=== PATIENT | female | born 1955 | race Two or more races ===

== ENCOUNTER 2016-12-15 11:22 | Emergency (ER) | payer OTHER ==
[~2016-12-15] VITALS: Ht 157.5 cm; Wt 73.5 kg
[2016-12-15 13:16] LABS: Basophils # (auto) 0 uL; Basophils % (auto) 0.5 % (0.0-2.0); DEFINITIVE VIEW TRANSMISSION; Eosinophils # (auto) 0 uL; Eosinophils % (auto) 0.6 % (0.0-7.0); Hematocrit 40.4 % (36.0-46.0); Hemoglobin 12.4 g/dL (12.2-16.2); Lymphocytes # (auto) 2.2 uL; Lymphocytes % (auto) 29.6 % (10.0-50.0); Mean Corpuscular Hemoglobin 26.6 pg (28.0-32.0); Mean Corpuscular Hgb Conc. 30.8 g/dL (32.0-36.0); Mean Corpuscular Volume 86.3 fL (80.0-100.0); Mean Platelet Volume 9.4 fL (7.4-10.4); Monocytes # (auto) 0.4 uL; Monocytes % (auto) 4.9 % (0.0-12.0); Neutrophils # (auto) 4.9 uL; Neutrophils % (auto) 64.4 % (37.0-80.0); Platelet Count (auto) 293 10^3/uL (140-450); Red Cell Distribution Width 13.3 % (11.6-16.0); White Blood Cell 7.6 10^3/uL (4.4-10.8)
[2016-12-15 13:30] LABS: Urine Bilirubin Negative (Negative); Urine Blood Negative /uL (Negative); Urine Color Yellow (Yellow); Urine Glucose Normal (Normal); Urine Ketone Negative (Negative); Urine Nitrite Negative (Negative); Urine RBC 1 /hpf (0 - 4); Urine Squamous Epithelial Cell FEW /hpf (<5); Urine Urobilinogen Normal (Negative); Urine pH 6.5 (5.0-8.0)
[2016-12-15 13:36] LABS: Calcium 8.9 mg/dL (8.5-10.1)
[2016-12-15 13:38] LABS: BUN/Creatinine Ratio 13.3
[2016-12-15 14:46] LABS: Bilirubin, Total 0.5 mg/dL (0.2-1.0); Total Protein 7.6 g/dL (6.4-8.2)
[2016-12-15 19:29] VITALS: BP 152/77
[2016-12-15] MEDS ORDERED: SODIUM CHLORIDE 0.9% 1,000 ML IVB ONE (20:04)
[2016-12-15 21:07] LABS: INR 1.09 (0.9-1.15); Partial Thromboplastin Time 27.8 sec (22.64-33.71); Prothrombin Time 11.2 sec (9.37-12.3)
== END 2016-12-15 22:18 | disposition home or self-care (01) ==
LOC: ER 11:23
DX: K57.30 Diverticulosis of large intestine without perforation or abscess without bleeding (principal); E78.5 Hyperlipidemia, unspecified; I10 Essential (primary) hypertension; Z88.1 Allergy status to other antibiotic agents
CPT/HCPCS: 36415; 71010; 74176; 80053; 81001; 83735; 85025; 85610; 85730; 93005; 94761; 96360; 96361; 99285; J7030

== ENCOUNTER 2019-03-01 09:56 | Emergency (ER) | payer OTHER ==
[~2019-03-01] VITALS: Ht 157.5 cm; Wt 73.5 kg
[2019-03-01 10:16] VITALS: BP 138/91
== END 2019-03-01 11:53 | disposition home or self-care (01) ==
LOC: ER 09:59
DX: S63.634A Sprain of interphalangeal joint of right ring finger, initial encounter (principal); E78.5 Hyperlipidemia, unspecified; I10 Essential (primary) hypertension; Z88.2 Allergy status to sulfonamides; X50.1XXA Overexertion from prolonged static or awkward postures, initial encounter; Y93.89 Activity, other specified; Y92.89 Other specified places as the place of occurrence of the external cause; Y99.8 Other external cause status
CPT/HCPCS: 29130; 73130

== ENCOUNTER → 2021-02-24 | Outpatient (CLI) | payer OTHER ==
[2021-02-24 08:32] LABS: Basophils # (auto) 0.1 10 ^3/uL (0-0.2); Basophils % (auto) 0.9 % (0.0-2.0); Eosinophils # (auto) 0.4 10 ^3/uL (0-0.8); Eosinophils % (auto) 5.8 % (0.0-7.0); Hematocrit 39.8 % (36.0-46.0); Hemoglobin 13.3 g/dL (12.2-16.2); Lymphocytes # (auto) 2.7 10 ^3/uL (0.4-5.4); Lymphocytes % (auto) 39.8 % (10.0-50.0); Mean Corpuscular Hemoglobin 28.4 pg (28.0-32.0); Mean Corpuscular Hgb Conc. 33.4 g/dL (32.0-36.0); Mean Corpuscular Volume 84.9 fL (80.0-100.0); Monocytes # (auto) 0.4 10 ^3/uL (0-1.3); Monocytes % (auto) 5.8 % (0.0-12.0); Neutrophils # (auto) 3.2 10 ^3/uL (1.6-8.6); Neutrophils % (auto) 47.7 % (37.0-80.0); Nucleated Red Blood Cells % 0.1 %; Platelet Count (auto) 281 10^3/uL (140-450); Red Blood Cells 4.69 10^6/uL (4.0-5.20); Red Cell Distribution Width 13.8 % (11.8-14.3); White Blood Cell 6.7 10^3/uL (4.4-10.8)
[2021-02-24 08:35] LABS: Urine Bacteria NONE SEEN /hpf (None Seen); Urine Blood Negative /uL (Negative); Urine Mucus FEW (None Seen); Urine Specific Gravity 1.018 (1.001-1.035); Urine WBC 1 /hpf (0 - 5)
[2021-02-24 09:08] LABS: Albumin 3.9 g/dL (3.4-5.0); Calcium 9.1 mg/dL (8.5-10.1); Potassium 3.6 mmol/L (3.5-5.1)
[2021-02-24 09:13] LABS: BUN/Creatinine Ratio 20.3; Bilirubin, Total 0.6 mg/dL (0.2-1.0); Total Protein 7.4 g/dL (6.4-8.2)
== END | disposition home or self-care (01) ==
LOC: LAB 07:56
PROVIDERS: ATTEND Student in an Organized Health Care Education/Training Program
DX: I10 Essential (primary) hypertension (principal); R73.9 Hyperglycemia, unspecified; M06.9 Rheumatoid arthritis, unspecified
CPT/HCPCS: 36415; 80053; 80061; 81001; 83036; 84443; 85025; 86431

== ENCOUNTER 2021-06-12 12:11 | Day surgery (SDC) | payer OTHER ==
[2021-06-09 09:49] LABS: Basophils # (auto) 0 10 ^3/uL (0-0.2); Basophils % (auto) 0.7 % (0.0-2.0); Eosinophils # (auto) 0.1 10 ^3/uL (0-0.8); Eosinophils % (auto) 1.4 % (0.0-7.0); Hematocrit 37.7 % (36.0-46.0); Hemoglobin 12.6 g/dL (12.2-16.2); Lymphocytes # (auto) 2.3 10 ^3/uL (0.4-5.4); Mean Corpuscular Hgb Conc. 33.5 g/dL (32.0-36.0); Mean Corpuscular Volume 83.7 fL (80.0-100.0); Monocytes # (auto) 0.5 10 ^3/uL (0-1.3); Neutrophils % (auto) 50.9 % (37.0-80.0); Red Blood Cells 4.51 10^6/uL (4.0-5.20); Red Cell Distribution Width 14.1 % (11.8-14.3)
[2021-06-09 09:55] LABS: Urine Bacteria NONE SEEN /hpf (None Seen); Urine Blood Negative /uL (Negative); Urine Hyaline Cast FEW /lpf (0 - 2); Urine Specific Gravity 1.014 (1.001-1.035); Urine WBC 5 /hpf (0 - 5)
[2021-06-09 10:15] LABS: Albumin 3.6 g/dL (3.4-5.0); Calcium 8.4 mg/dL (8.5-10.1)
[2021-06-09 10:18] LABS: BUN/Creatinine Ratio 22.5; Bilirubin, Total 0.4 mg/dL (0.2-1.0); Total Protein 7.1 g/dL (6.4-8.2)
[~2021-06-12] VITALS: Ht 149.9 cm; Wt 73.5 kg
[~2021-06-12 12:11] MED LIST: ATO40T PO; FLUT1SPR5; HYDR25TA4 PO; LORA-622 PO; OMEP20TA PO
[2021-06-12] MEDS: fentaNYL CITRATE 100 MCG/2 ML VL ONE ×3 (14:14→14:23)
[2021-06-12] MEDS: MIDAZOLAM HCL 5 MG/ML-1ML VIAL ONE ×3 (14:14→14:23)
[2021-06-12] MEDS: diphenhdrAMINE HCL 50 MG/1 ML VL ONE ×2 (14:14→14:17)
[2021-06-12 15:05] VITALS: BP 115/61
== END 2021-06-12 15:30 | disposition home or self-care (01) ==
LOC: GI 12:11
PROVIDERS: ATTEND Internal Medicine Gastroenterology
DX: Z12.11 Encounter for screening for malignant neoplasm of colon (principal); K63.89 Other specified diseases of intestine; K64.8 Other hemorrhoids; I10 Essential (primary) hypertension; E78.5 Hyperlipidemia, unspecified; M62.89 Other specified disorders of muscle; Z98.890 Other specified postprocedural states; Z79.899 Other long term (current) drug therapy; Z88.1 Allergy status to other antibiotic agents; Z68.32 Body mass index [BMI] 32.0-32.9, adult; Z20.822 Contact with and (suspected) exposure to COVID-19
CPT/HCPCS: 36415; 45380; 80053; 81001; 85025; 88305; J1200; J2250; J3010; J7030; U0003; 99152

== ENCOUNTER → 2022-04-14 | Outpatient (CLI) | payer OTHER ==
[2022-04-14 08:13] LABS: Basophils # (auto) 0 10 ^3/uL (0-0.2); Basophils % (auto) 0.8 % (0.0-2.0); Eosinophils # (auto) 0.1 10 ^3/uL (0-0.8); Hematocrit 36.6 % (36.0-46.0); Hemoglobin 12.5 g/dL (12.2-16.2); Lymphocytes # (auto) 2.4 10 ^3/uL (0.4-5.4); Lymphocytes % (auto) 39.5 % (10.0-50.0); Mean Corpuscular Hgb Conc. 34.3 g/dL (32.0-36.0); Mean Corpuscular Volume 84.5 fL (80.0-100.0); Monocytes # (auto) 0.4 10 ^3/uL (0-1.3); Monocytes % (auto) 7.4 % (0.0-12.0); Neutrophils # (auto) 3.1 10 ^3/uL (1.6-8.6); Neutrophils % (auto) 50.3 % (37.0-80.0); Nucleated Red Blood Cells % 0.1 %; Red Blood Cells 4.33 10^6/uL (4.0-5.20); Red Cell Distribution Width 13.8 % (11.8-14.3); White Blood Cell 6.1 10^3/uL (4.4-10.8)
[2022-04-14 08:14] LABS: Urine Bacteria FEW /hpf (None Seen); Urine Blood Negative /uL (Negative); Urine WBC 16 /hpf (0 - 5)
[2022-04-14 08:37] LABS: Potassium 3.8 mmol/L (3.5-5.1)
[2022-04-14 08:45] LABS: Albumin 3.5 g/dL (3.4-5.0); BUN/Creatinine Ratio 22.1; Bilirubin, Total 0.6 mg/dL (0.2-1.0); Calcium 8.6 mg/dL (8.5-10.1); Total Protein 7.1 g/dL (6.4-8.2)
== END | disposition home or self-care (01) ==
LOC: LAB 07:48
PROVIDERS: ATTEND Student in an Organized Health Care Education/Training Program
DX: A74.9 Chlamydial infection, unspecified (principal); I10 Essential (primary) hypertension
CPT/HCPCS: 36415; 80053; 80061; 81001; 83036; 84443; 85025

== ENCOUNTER 2022-04-22 09:51 | Emergency (ER) | payer OTHER ==
[~2022-04-22] VITALS: Ht 157.5 cm; Wt 73.9 kg
[2022-04-22] MEDS ORDERED: SODIUM CHLORIDE 0.9% 1,000 ML IV ONE (10:00)
[2022-04-22] MEDS ORDERED: MECL25CH38 PO (10:16)
[2022-04-22] MEDS ORDERED: cloNIDine HCL 0.1 MG TAB PO ONE (10:30)
[2022-04-22 10:41] LABS: Basophils # (auto) 0.1 10 ^3/uL (0-0.2); Basophils % (auto) 1.6 % (0.0-2.0); Eosinophils # (auto) 0 10 ^3/uL (0-0.8); Eosinophils % (auto) 0.1 % (0.0-7.0); Hematocrit 38.8 % (36.0-46.0); Hemoglobin 12.9 g/dL (12.2-16.2); Lymphocytes # (auto) 1.3 10 ^3/uL (0.4-5.4); Lymphocytes % (auto) 17.4 % (10.0-50.0); Mean Corpuscular Hemoglobin 28.7 pg (28.0-32.0); Mean Corpuscular Hgb Conc. 33.4 g/dL (32.0-36.0); Mean Corpuscular Volume 85.9 fL (80.0-100.0); Monocytes # (auto) 0.3 10 ^3/uL (0-1.3); Monocytes % (auto) 3.5 % (0.0-12.0); Neutrophils # (auto) 5.7 10 ^3/uL (1.6-8.6); Neutrophils % (auto) 77.4 % (37.0-80.0); Nucleated Red Blood Cells % 0.1 %; Red Blood Cells 4.51 10^6/uL (4.0-5.20); Red Cell Distribution Width 13.9 % (11.8-14.3); White Blood Cell 7.3 10^3/uL (4.4-10.8)
[2022-04-22 10:58] LABS: BUN/Creatinine Ratio 20.3; Calcium 8.8 mg/dL (8.5-10.1); Potassium 3.9 mmol/L (3.5-5.1)
[2022-04-22 11:01] LABS: Bilirubin, Total 0.5 mg/dL (0.2-1.0); Total Protein 7.5 g/dL (6.4-8.2)
[2022-04-22 11:44] LABS: Urine Bacteria NONE SEEN /hpf (None Seen); Urine Blood Negative /uL (Negative); Urine Mucus FEW (None Seen); Urine Specific Gravity 1.023 (1.001-1.035); Urine WBC 1 /hpf (0 - 5)
[2022-04-22 11:45] VITALS: BP 146/79
[2022-04-22] MEDS ORDERED: MECLIZINE HCL 25 MG TAB PO ONE (12:30)
== END 2022-04-22 13:08 | disposition home or self-care (01) ==
LOC: ER 09:51
DX: R42 Dizziness and giddiness (principal); I10 Essential (primary) hypertension; E78.5 Hyperlipidemia, unspecified; Z88.2 Allergy status to sulfonamides
CPT/HCPCS: 36415; 70450; 71045; 80053; 81001; 84484; 85025; 93005; 96360; 99285; J7030; J8597

== ENCOUNTER → 2022-07-14 | Outpatient (CLI) | payer OTHER ==
[~2022-07-14] MED LIST changes: +MECL25CH38 PO
== END | disposition home or self-care (01) ==
LOC: XYW 10:10
PROVIDERS: ATTEND Student in an Organized Health Care Education/Training Program
DX: M47.022 Vertebral artery compression syndromes, cervical region (principal); I65.23 Occlusion and stenosis of bilateral carotid arteries; R42 Dizziness and giddiness
CPT/HCPCS: 93886

== ENCOUNTER 2022-11-07 08:44 | Emergency (ER) | payer OTHER ==
[~2022-11-07] VITALS: Ht 157.5 cm; Wt 73.4 kg
[2022-11-07 09:15] VITALS: BP 153/94
[2022-11-07] MEDS ORDERED: POLYSOL15 OP (09:47)
[2022-11-07] MEDS ORDERED: LORA-664 PO (09:47)
[2022-11-07] MEDS ORDERED: BENZ100C19 PO (09:48)
== END 2022-11-07 10:10 | disposition home or self-care (01) ==
LOC: ER 08:44
DX: J06.9 Acute upper respiratory infection, unspecified (principal); B97.89 Other viral agents as the cause of diseases classified elsewhere; H10.9 Unspecified conjunctivitis; I10 Essential (primary) hypertension; E78.5 Hyperlipidemia, unspecified; Z79.899 Other long term (current) drug therapy; Z88.2 Allergy status to sulfonamides

== ENCOUNTER → 2022-12-21 | Outpatient (CLI) | payer OTHER ==
[~2022-12-21] MED LIST changes: +BENZ100C19 PO; +HYDR-4188 OR; +LORA-664 PO; +LOSA-69 PO; +POLYSOL15 OP
[2022-12-21 08:46] LABS: Basophils # (auto) 0 10 ^3/uL (0-0.2); Basophils % (auto) 0.7 % (0.0-2.0); Eosinophils # (auto) 0.1 10 ^3/uL (0-0.8); Eosinophils % (auto) 1.5 % (0.0-7.0); Hematocrit 40.6 % (36.0-46.0); Hemoglobin 13.1 g/dL (12.2-16.2); Lymphocytes # (auto) 2.1 10 ^3/uL (0.4-5.4); Lymphocytes % (auto) 31.8 % (10.0-50.0); Mean Corpuscular Hemoglobin 27.9 pg (28.0-32.0); Mean Corpuscular Hgb Conc. 32.3 g/dL (32.0-36.0); Mean Corpuscular Volume 86.2 fL (80.0-100.0); Monocytes # (auto) 0.4 10 ^3/uL (0-1.3); Monocytes % (auto) 6.5 % (0.0-12.0); Neutrophils # (auto) 3.9 10 ^3/uL (1.6-8.6); Neutrophils % (auto) 59.5 % (37.0-80.0); Nucleated Red Blood Cells % 0.1 %; Red Cell Distribution Width 14.1 % (11.8-14.3); White Blood Cell 6.6 10^3/uL (4.4-10.8)
[2022-12-21 08:55] LABS: Urine Bacteria NONE SEEN /hpf (None Seen); Urine Blood Negative /uL (Negative); Urine Specific Gravity 1.005 (1.001-1.035); Urine WBC <1 /hpf (0 - 5)
[2022-12-21 09:24] LABS: Albumin 3.8 g/dL (3.4-5.0); Calcium 8.9 mg/dL (8.5-10.1); Potassium 3.9 mmol/L (3.5-5.1)
[2022-12-21 09:27] LABS: BUN/Creatinine Ratio 18.2; Bilirubin, Total 0.5 mg/dL (0.2-1.0); Total Protein 7.3 g/dL (6.4-8.2)
== END | disposition home or self-care (01) ==
LOC: LAB 08:30
PROVIDERS: ATTEND Student in an Organized Health Care Education/Training Program
DX: I10 Essential (primary) hypertension (principal); R73.9 Hyperglycemia, unspecified
CPT/HCPCS: 36415; 80053; 80061; 81001; 83036; 84443; 85025

== ENCOUNTER → 2022-12-22 | Day surgery (SDC) | payer OTHER ==
[2022-12-21 08:45] LABS: Basophils # (auto) 0 10 ^3/uL (0-0.2); Basophils % (auto) 0.5 % (0.0-2.0); Eosinophils # (auto) 0.1 10 ^3/uL (0-0.8); Eosinophils % (auto) 1.4 % (0.0-7.0); Hemoglobin 13.2 g/dL (12.2-16.2); Lymphocytes # (auto) 2.1 10 ^3/uL (0.4-5.4); Lymphocytes % (auto) 32.4 % (10.0-50.0); Mean Corpuscular Hemoglobin 27.7 pg (28.0-32.0); Mean Corpuscular Hgb Conc. 32.2 g/dL (32.0-36.0); Mean Corpuscular Volume 86.2 fL (80.0-100.0); Monocytes # (auto) 0.4 10 ^3/uL (0-1.3); Monocytes % (auto) 6.7 % (0.0-12.0); Neutrophils # (auto) 3.7 10 ^3/uL (1.6-8.6); Red Blood Cells 4.75 10^6/uL (4.0-5.20); Red Cell Distribution Width 14.3 % (11.8-14.3); White Blood Cell 6.3 10^3/uL (4.4-10.8)
[2022-12-21 09:07] LABS: INR 0.99 (0.9-1.15); Partial Thromboplastin Time 28.9 sec (24.6-33.4)
[2022-12-21 09:20] LABS: Albumin 3.6 g/dL (3.4-5.0); Calcium 9.1 mg/dL (8.5-10.1)
[2022-12-21 09:22] LABS: Bilirubin, Total 0.5 mg/dL (0.2-1.0); Total Protein 7.2 g/dL (6.4-8.2)
[~2022-12-22] VITALS: Ht 160 cm; Wt 73.0 kg
[~2022-12-22] MED LIST changes: -ATO40T PO; -HYDR25TA4 PO; +LIDOCAINE VISCOUS 2% 15ML UD ONE; -LORA-664 PO; -MECL25CH38 PO; -OMEP20TA PO; -POLYSOL15 OP
[2022-12-22] MEDS: diphenhdrAMINE HCL 50 MG/1 ML VL ONE ×2 (13:08→13:10)
[2022-12-22] MEDS: MIDAZOLAM HCL 2MG/2ML 2ml VIAL (1mg/ml) ONE ×2 (13:08→13:11)
[2022-12-22] MEDS: fentaNYL CITRATE 100 MCG/2 ML VL ONE ×3 (13:08→13:14)
[2022-12-22 14:00] VITALS: BP 128/69
== END | disposition home or self-care (01) ==
LOC: GI 12:15
PROVIDERS: ATTEND Internal Medicine Gastroenterology
DX: R10.13 Epigastric pain (principal); B37.81 Candidal esophagitis; K44.9 Diaphragmatic hernia without obstruction or gangrene; K29.50 Unspecified chronic gastritis without bleeding; Z20.822 Contact with and (suspected) exposure to COVID-19
CPT/HCPCS: 36415; 43239; 80053; 85025; 85610; 85730; J1200; J2250; J3010; U0003

== ENCOUNTER → 2023-03-08 | Outpatient (CLI) | payer OTHER ==
[~2023-03-08] MED LIST changes: -LIDOCAINE VISCOUS 2% 15ML UD ONE
[2023-03-08 08:32] LABS: Basophils # (auto) 0 10 ^3/uL (0-0.2); Basophils % (auto) 0.7 % (0.0-2.0); Eosinophils # (auto) 0.1 10 ^3/uL (0-0.8); Eosinophils % (auto) 1.3 % (0.0-7.0); Hematocrit 38.1 % (36.0-46.0); Hemoglobin 12.5 g/dL (12.2-16.2); Lymphocytes # (auto) 2.5 10 ^3/uL (0.4-5.4); Lymphocytes % (auto) 33.2 % (10.0-50.0); Mean Corpuscular Hemoglobin 27.9 pg (28.0-32.0); Mean Corpuscular Hgb Conc. 32.8 g/dL (32.0-36.0); Monocytes # (auto) 0.6 10 ^3/uL (0-1.3); Monocytes % (auto) 8.1 % (0.0-12.0); Neutrophils # (auto) 4.3 10 ^3/uL (1.6-8.6); Neutrophils % (auto) 56.7 % (37.0-80.0); Nucleated Red Blood Cells % 0.1 %; Red Blood Cells 4.48 10^6/uL (4.0-5.20); Red Cell Distribution Width 14.8 % (11.8-14.3); White Blood Cell 7.5 10^3/uL (4.4-10.8)
[2023-03-08 09:30] LABS: Calcium 8.9 mg/dL (8.5-10.1)
[2023-03-08 09:34] LABS: BUN/Creatinine Ratio 16.2 (10.0-20.0)
[2023-03-08 12:06] LABS: Urine Bacteria FEW /hpf (None Seen); Urine Blood TRACE /uL (Negative); Urine WBC 1 /hpf (0 - 5)
== END | disposition home or self-care (01) ==
LOC: LAB 08:16
PROVIDERS: ATTEND Student in an Organized Health Care Education/Training Program
DX: I10 Essential (primary) hypertension (principal); R73.9 Hyperglycemia, unspecified
CPT/HCPCS: 36415; 80048; 80061; 81001; 83036; 85025

== ENCOUNTER → 2023-05-23 | Outpatient (CLI) | payer OTHER ==
[~2023-05-23] MED LIST changes: -LOSA-69 PO; +LOSA50TA46 PO
[2023-05-23 13:12] LABS: Urine Bacteria NONE SEEN /hpf (None Seen); Urine Blood Negative /uL (Negative); Urine Specific Gravity 1.008 (1.001-1.035); Urine WBC <1 /hpf (0 - 5)
== END | disposition home or self-care (01) ==
LOC: LAB 12:31
PROVIDERS: ATTEND Urology
DX: N39.0 Urinary tract infection, site not specified (principal)
CPT/HCPCS: 81001; 87086

== ENCOUNTER 2023-08-17 18:34 | Emergency (ER) | payer OTHER ==
[~2023-08-17] VITALS: Ht 157.5 cm; Wt 74.4 kg
[2023-08-17] MEDS ORDERED: ACCU-CHEK COMFORT CURVE STRIP VI ONE (19:00)
[2023-08-17 19:12] LABS: Basophils # (auto) 0 10 ^3/uL (0-0.2); Basophils % (auto) 0.4 % (0.0-2.0); Eosinophils # (auto) 0 10 ^3/uL (0-0.8); Eosinophils % (auto) 0.1 % (0.0-7.0); Hemoglobin 12.4 g/dL (12.2-16.2); Lymphocytes # (auto) 1.7 10 ^3/uL (0.4-5.4); Lymphocytes % (auto) 18.6 % (10.0-50.0); Mean Corpuscular Hemoglobin 28.1 pg (28.0-32.0); Mean Corpuscular Hgb Conc. 32.7 g/dL (32.0-36.0); Monocytes # (auto) 0.3 10 ^3/uL (0-1.3); Monocytes % (auto) 3.5 % (0.0-12.0); Neutrophils # (auto) 7.1 10 ^3/uL (1.6-8.6); Neutrophils % (auto) 77.4 % (37.0-80.0); Red Blood Cells 4.42 10^6/uL (4.0-5.20); Red Cell Distribution Width 13.9 % (11.8-14.3); White Blood Cell 9.2 10^3/uL (4.4-10.8)
[2023-08-17 19:30] LABS: Alanine Aminotransferase 20 U/L (7-40); Albumin 4.3 g/dL (3.2-4.8); Alkaline Phosphatase 79 U/L (46-116); Anion Gap 10 (5-15); Aspartate Aminotransferase 17 U/L (13-40); BUN/Creatinine Ratio 16.9 (10.0-20.0); Bilirubin, Total 0.6 mg/dL (0.2-1.0); Blood Urea Nitrogen 12 mg/dL (9-23); Calcium 9.1 mg/dL (8.5-10.1); Carbon Dioxide 23 mmol/L (20-30); Chloride 106 mmol/L (98-107); Glucose 189 mg/dL (74-106); Potassium 3.8 mmol/L (3.5-5.1); Sodium 139 mmol/L (136-145); Total Protein 6.7 g/dL (5.7-8.2)
[2023-08-18] MEDS ORDERED: MECLIZINE HCL 25 MG TAB PO ONE (02:00)
[2023-08-18] MEDS ORDERED: ONDANSETRON ODT 4 MG TAB PO ONE (02:00)
[2023-08-18 02:15] VITALS: PULSE 72; RESP 18; TEMP 97.4; O2SAT 99
[2023-08-18] MEDS ORDERED: ACETAMINOPHEN 325 MG TAB PO ONE (02:15)
[2023-08-18 03:11] LABS: Urine Bacteria NONE SEEN /hpf (None Seen); Urine Blood Negative /uL (Negative); Urine Clarity Clear (Clear); Urine Color Colorless (Yellow); Urine Mucus FEW (None Seen); Urine Protein, UAD Negative (Negative); Urine Specific Gravity 1.012 (1.001-1.035); Urine Urobilinogen Normal (Negative); Urine WBC 7 /hpf (0 - 5); Urine pH 6.5 (5.0-8.0)
[2023-08-18] MEDS ORDERED: MECL1TAB31 PO (03:42)
[2023-08-18] MEDS ORDERED: ZOFR4T PO (03:42)
[2023-08-18 03:49] VITALS: BP 155/87; PULSE 69; RESP 20; O2SAT 97
== END 2023-08-18 03:43 | disposition home or self-care (01) ==
LOC: ER 18:34
DX: R42 Dizziness and giddiness (principal); E78.5 Hyperlipidemia, unspecified; I10 Essential (primary) hypertension; Z98.890 Other specified postprocedural states
CPT/HCPCS: 36415; 80053; 81001; 82962; 84484; 85025; 93005; 99284; J8597; Q0162

== ENCOUNTER → 2023-09-26 | Outpatient (CLI) | payer OTHER ==
[~2023-09-26] MED LIST changes: +MECL1TAB31 PO; +ZOFR4T PO
[2023-09-26 07:19] LABS: Basophils # (auto) 0 10 ^3/uL (0-0.2); Basophils % (auto) 0.6 % (0.0-2.0); Eosinophils # (auto) 0.1 10 ^3/uL (0-0.8); Eosinophils % (auto) 1.3 % (0.0-7.0); Hematocrit 39.1 % (36.0-46.0); Hemoglobin 12.9 g/dL (12.2-16.2); Lymphocytes # (auto) 2.4 10 ^3/uL (0.4-5.4); Lymphocytes % (auto) 36.7 % (10.0-50.0); Mean Corpuscular Hemoglobin 28.3 pg (28.0-32.0); Mean Corpuscular Hgb Conc. 32.9 g/dL (32.0-36.0); Mean Corpuscular Volume 86.2 fL (80.0-100.0); Monocytes # (auto) 0.4 10 ^3/uL (0-1.3); Monocytes % (auto) 6.5 % (0.0-12.0); Neutrophils # (auto) 3.6 10 ^3/uL (1.6-8.6); Neutrophils % (auto) 54.9 % (37.0-80.0); Red Blood Cells 4.54 10^6/uL (4.0-5.20); White Blood Cell 6.5 10^3/uL (4.4-10.8)
[2023-09-26 07:36] LABS: Urine Bacteria NONE SEEN /hpf (None Seen); Urine Blood Negative /uL (Negative); Urine Clarity Clear (Clear); Urine Protein, UAD Negative (Negative); Urine Specific Gravity 1.013 (1.001-1.035); Urine Urobilinogen Normal (Negative); Urine WBC 2 /hpf (0 - 5)
[2023-09-26 07:37] LABS: Urine Color Straw (Yellow)
[2023-09-26 08:36] LABS: Alanine Aminotransferase 19 U/L (7-40); Albumin 4.4 g/dL (3.2-4.8); Alkaline Phosphatase 84 U/L (46-116); Anion Gap 6 (5-15); Aspartate Aminotransferase 16 U/L (13-40); BUN/Creatinine Ratio 13.7 (10.0-20.0); Bilirubin, Total 0.5 mg/dL (0.2-1.0); Blood Urea Nitrogen 10 mg/dL (9-23); Calcium 9.5 mg/dL (8.5-10.1); Carbon Dioxide 29 mmol/L (20-30); Chloride 105 mmol/L (98-107); Cholesterol 221 mg/dL (< 200); Glucose 112 mg/dL (74-106); HDL Cholesterol 53 mg/dL (40-59); LDL Cholesterol 152 mg/dL (< 100); Potassium 4.1 mmol/L (3.5-5.1); Sodium 140 mmol/L (136-145); Triglycerides 135 mg/dL (< 150)
[2023-09-26 08:37] LABS: Total Protein 6.9 g/dL (5.7-8.2)
== END | disposition home or self-care (01) ==
LOC: LAB 07:03
DX: I10 Essential (primary) hypertension (principal); E78.5 Hyperlipidemia, unspecified
CPT/HCPCS: 36415; 80053; 80061; 81001; 82274; 82306; 83036; 84443; 85025

== ENCOUNTER → 2024-01-24 | Outpatient (CLI) | payer OTHER ==
[2024-01-24 15:51] LABS: Urine Bacteria NONE SEEN /hpf (None Seen); Urine Blood Negative /uL (Negative); Urine Clarity Clear (Clear); Urine Color Colorless (Yellow); Urine Protein, UAD Negative (Negative); Urine Specific Gravity 1.007 (1.001-1.035); Urine Urobilinogen Normal (Negative); Urine WBC <1 /hpf (0 - 5); Urine pH 5.5 (5.0-8.0)
== END | disposition home or self-care (01) ==
LOC: LAB 15:39
PROVIDERS: ATTEND Internal Medicine Gastroenterology
DX: N39.0 Urinary tract infection, site not specified (principal)
CPT/HCPCS: 81001; 87086

== ENCOUNTER → 2024-07-09 | Outpatient (CLI) | payer OTHER ==
[~2024-07-09] MED LIST changes: -HYDR-4188 OR; +HYDR-4491 OR; +LOSA-534 PO; -LOSA50TA46 PO; +MECL12.586 PO; -MECL1TAB31 PO
[2024-07-09 08:56] LABS: Basophils # (auto) 0 10 ^3/uL (0-0.2); Basophils % (auto) 0.6 % (0.0-2.0); Eosinophils # (auto) 0.2 10 ^3/uL (0-0.8); Eosinophils % (auto) 2.5 % (0.0-7.0); Hematocrit 38.5 % (36.0-46.0); Lymphocytes # (auto) 1.7 10 ^3/uL (0.4-5.4); Lymphocytes % (auto) 24.5 % (10.0-50.0); Mean Corpuscular Hemoglobin 28.9 pg (28.0-32.0); Mean Corpuscular Hgb Conc. 33.9 g/dL (32.0-36.0); Mean Corpuscular Volume 85.3 fL (80.0-100.0); Monocytes # (auto) 0.5 10 ^3/uL (0-1.3); Neutrophils # (auto) 4.4 10 ^3/uL (1.6-8.6); Neutrophils % (auto) 65.4 % (37.0-80.0); Platelet Count (auto) 298 10^3/uL (140-450); Red Blood Cells 4.52 10^6/uL (4.0-5.20); Red Cell Distribution Width 14.1 % (11.8-14.3); White Blood Cell 6.7 10^3/uL (4.4-10.8)
[2024-07-09 09:15] LABS: Urine Bacteria FEW /hpf (None Seen); Urine Blood 1+ /uL (Negative); Urine Budding Yeast OCCASIONAL /hpf (None Seen); Urine Clarity Clear (Clear); Urine Color Yellow (Yellow); Urine Mucus FEW (None Seen); Urine Protein, UAD 1+ (Negative); Urine Specific Gravity 1.029 (1.001-1.035); Urine Urobilinogen Normal (Negative); Urine WBC 3 /hpf (0 - 5); Urine pH 5.5 (5.0-9.0)
[2024-07-09 09:22] LABS: Alanine Aminotransferase 14 U/L (7-40); Albumin 4.2 g/dL (3.2-4.8); Alkaline Phosphatase 78 U/L (46-116); Anion Gap 7 (5-15); Aspartate Aminotransferase 15 U/L (13-40); Bilirubin, Total 0.5 mg/dL (0.2-1.0); Blood Urea Nitrogen 13 mg/dL (9-23); Calcium 9.6 mg/dL (8.7-10.4); Carbon Dioxide 25 mmol/L (20-30); Chloride 107 mmol/L (98-107); Glucose 101 mg/dL (74-106); Potassium 3.9 mmol/L (3.5-5.1); Sodium 139 mmol/L (136-145)
[2024-07-09 09:27] LABS: Erythrocyte Sedimentation Rate 12 mm/hr (0-20)
== END | disposition home or self-care (01) ==
LOC: LAB 08:32
PROVIDERS: ATTEND Student in an Organized Health Care Education/Training Program
DX: I10 Essential (primary) hypertension (principal); R73.09 Other abnormal glucose; M06.09 Rheumatoid arthritis without rheumatoid factor, multiple sites
CPT/HCPCS: 36415; 80053; 81001; 83036; 84443; 85025; 85652; 86141

== ENCOUNTER → 2024-09-11 | Outpatient (CLI) | payer OTHER ==
[~2024-09-11] MED LIST changes: +AZIT500T66 PO; +PRED20TA2 PO
[2024-09-11 08:10] LABS: Urine Bacteria None Seen /hpf (None Seen); Urine WBC None Seen /hpf (0 - 5)
[2024-09-11 08:23] LABS: Urine Blood Negative /uL (Negative); Urine Clarity Clear (Clear); Urine Color Colorless (Yellow); Urine Protein, UAD Negative (Negative); Urine Specific Gravity 1.004 (1.001-1.035); Urine Urobilinogen Normal (Negative); Urine pH 6.5 (5.0-9.0)
[2024-09-11 08:25] LABS: Basophils # (auto) 0 10 ^3/uL (0-0.2); Basophils % (auto) 0.8 % (0.0-2.0); Eosinophils # (auto) 0.1 10 ^3/uL (0-0.8); Eosinophils % (auto) 2.1 % (0.0-7.0); Hematocrit 38.1 % (36.0-46.0); Hemoglobin 12.3 g/dL (12.2-16.2); Lymphocytes # (auto) 2.7 10 ^3/uL (0.4-5.4); Lymphocytes % (auto) 42.7 % (10.0-50.0); Mean Corpuscular Hemoglobin 27.6 pg (28.0-32.0); Mean Corpuscular Hgb Conc. 32.3 g/dL (32.0-36.0); Mean Corpuscular Volume 85.5 fL (80.0-100.0); Monocytes # (auto) 0.4 10 ^3/uL (0-1.3); Monocytes % (auto) 6.8 % (0.0-12.0); Neutrophils % (auto) 47.6 % (37.0-80.0); Nucleated Red Blood Cells % 0.2 %; Platelet Count (auto) 271 10^3/uL (140-450); Red Blood Cells 4.46 10^6/uL (4.0-5.20); Red Cell Distribution Width 14.6 % (11.8-14.3); White Blood Cell 6.3 10^3/uL (4.4-10.8)
[2024-09-11 08:55] LABS: Protein, Urine < 6.0 mg/dL (1-14)
[2024-09-11 08:56] LABS: Erythrocyte Sedimentation Rate 7 mm/hr (0-20)
[2024-09-11 08:57] LABS: Creatinine, Urine 15.61 mg/dL (30.0-125.0); Urine Protein/Creatinine Ratio 0.38
[2024-09-11 09:00] LABS: Alanine Aminotransferase 16 U/L (7-40); Albumin 4.1 g/dL (3.2-4.8); Alkaline Phosphatase 77 U/L (46-116); Anion Gap 7 (5-15); Aspartate Aminotransferase 15 U/L (13-40); BUN/Creatinine Ratio 12.5 (10.0-20.0); Bilirubin, Total 0.5 mg/dL (0.2-1.0); Blood Urea Nitrogen 9 mg/dL (9-23); CRP High Sensitivity 0.36 mg/dL (<1.0); Calcium 9.4 mg/dL (8.7-10.4); Carbon Dioxide 26 mmol/L (20-31); Chloride 108 mmol/L (98-107); Glucose 108 mg/dL (74-106); Potassium 3.6 mmol/L (3.5-5.1); Sodium 141 mmol/L (136-145); Total Protein 6.7 g/dL (5.7-8.2)
[2024-09-13 01:06] LABS: Hepatitis B Core Total Antibod Negative (Negative)
== END | disposition home or self-care (01) ==
LOC: LAB 07:38
PROVIDERS: ATTEND Student in an Organized Health Care Education/Training Program
DX: Z11.1 Encounter for screening for respiratory tuberculosis (principal); I10 Essential (primary) hypertension; R73.9 Hyperglycemia, unspecified; M06.09 Rheumatoid arthritis without rheumatoid factor, multiple sites; E55.9 Vitamin D deficiency, unspecified; R53.82 Chronic fatigue, unspecified; M32.10 Systemic lupus erythematosus, organ or system involvement unspecified; Z79.899 Other long term (current) drug therapy
CPT/HCPCS: 36415; 80053; 81001; 82306; 82570; 83036; 84156; 84443; 85025; 85652; 86141; 87340; 87902

== ENCOUNTER → 2024-10-25 | Outpatient (CLI) | payer OTHER ==
[2024-10-25 11:49] LABS: Alanine Aminotransferase 18 U/L (7-40); Albumin 4.3 g/dL (3.2-4.8); Alkaline Phosphatase 86 U/L (46-116); Anion Gap 5 (5-15); Aspartate Aminotransferase 18 U/L (13-40); BUN/Creatinine Ratio 20.3 (10.0-20.0); Bilirubin, Total 0.7 mg/dL (0.2-1.0); Blood Urea Nitrogen 16 mg/dL (9-23); CRP High Sensitivity 0.44 mg/dL (<1.0); Calcium 9.9 mg/dL (8.7-10.4); Carbon Dioxide 29 mmol/L (20-31); Chloride 107 mmol/L (98-107); Glucose 94 mg/dL (74-106); Potassium 4.1 mmol/L (3.5-5.1); Sodium 141 mmol/L (136-145); Total Protein 6.9 g/dL (5.7-8.2)
[2024-10-25 11:53] LABS: Basophils # (auto) 0 10 ^3/uL (0-0.2); Basophils % (auto) 0.5 % (0.0-2.0); Eosinophils # (auto) 0.1 10 ^3/uL (0-0.8); Eosinophils % (auto) 1.7 % (0.0-7.0); Hematocrit 37.6 % (36.0-46.0); Hemoglobin 12.6 g/dL (12.2-16.2); Lymphocytes # (auto) 2.7 10 ^3/uL (0.4-5.4); Lymphocytes % (auto) 39.7 % (10.0-50.0); Mean Corpuscular Hemoglobin 28.9 pg (28.0-32.0); Mean Corpuscular Hgb Conc. 33.5 g/dL (32.0-36.0); Mean Corpuscular Volume 86.2 fL (80.0-100.0); Monocytes # (auto) 0.5 10 ^3/uL (0-1.3); Neutrophils # (auto) 3.4 10 ^3/uL (1.6-8.6); Neutrophils % (auto) 50.1 % (37.0-80.0); Nucleated Red Blood Cells % 0.1 %; Platelet Count (auto) 285 10^3/uL (140-450); Red Blood Cells 4.36 10^6/uL (4.0-5.20); Red Cell Distribution Width 14.5 % (11.8-14.3); White Blood Cell 6.8 10^3/uL (4.4-10.8)
[2024-10-25 12:42] LABS: Erythrocyte Sedimentation Rate 9 mm/hr (0-20)
== END | disposition home or self-care (01) ==
LOC: LAB 10:57
PROVIDERS: ATTEND Internal Medicine Rheumatology
DX: M06.09 Rheumatoid arthritis without rheumatoid factor, multiple sites (principal)
CPT/HCPCS: 36415; 80053; 85025; 85652; 86141

== ENCOUNTER 2025-01-16 08:11 | Day surgery (SDC) | payer OTHER ==
[2025-01-09 11:19] LABS: Urine Bacteria None Seen /hpf (None Seen)
[2025-01-09 11:45] LABS: Basophils # (auto) 0 10 ^3/uL (0-0.2); Basophils % (auto) 0.5 % (0.0-2.0); Eosinophils # (auto) 0.1 10 ^3/uL (0-0.8); Eosinophils % (auto) 1.8 % (0.0-7.0); Hematocrit 41.3 % (36.0-46.0); Hemoglobin 13.3 g/dL (12.2-16.2); Lymphocytes # (auto) 2.4 10 ^3/uL (0.4-5.4); Lymphocytes % (auto) 31.4 % (10.0-50.0); Mean Corpuscular Hemoglobin 27.9 pg (28.0-32.0); Mean Corpuscular Hgb Conc. 32.3 g/dL (32.0-36.0); Mean Corpuscular Volume 86.5 fL (80.0-100.0); Monocytes # (auto) 0.5 10 ^3/uL (0-1.3); Monocytes % (auto) 6.8 % (0.0-12.0); Neutrophils # (auto) 4.5 10 ^3/uL (1.6-8.6); Neutrophils % (auto) 59.5 % (37.0-80.0); Nucleated Red Blood Cells % 0.1 %; Platelet Count (auto) 289 10^3/uL (140-450); Red Blood Cells 4.77 10^6/uL (4.0-5.20); Red Cell Distribution Width 14.4 % (11.8-14.3); White Blood Cell 7.5 10^3/uL (4.4-10.8)
[2025-01-09 11:48] LABS: Urine Blood Negative /uL (Negative); Urine Clarity Clear (Clear); Urine Color Light-Yellow (Yellow); Urine Protein, UAD Negative (Negative); Urine Specific Gravity 1.012 (1.001-1.035); Urine Squamous Epithelial Cell None Seen /hpf (<5); Urine Urobilinogen Normal (Negative); Urine pH 6.5 (5.0-9.0)
[2025-01-09 11:49] LABS: Partial Thromboplastin Time 28.1 SEC (24.5-34.5); Prothrombin Time 10.6 sec (9.3-11.8)
[2025-01-09 12:57] LABS: Alanine Aminotransferase 18 U/L (7-40); Albumin 4.6 g/dL (3.2-4.8); Alkaline Phosphatase 95 U/L (46-116); Anion Gap 8 (5-15); Aspartate Aminotransferase 16 U/L (13-40); BUN/Creatinine Ratio 14.5 (10.0-20.0); Blood Urea Nitrogen 11 mg/dL (9-23); Calcium 9.7 mg/dL (8.7-10.4); Carbon Dioxide 27 mmol/L (20-31); Chloride 104 mmol/L (98-107); Glucose 97 mg/dL (74-106); Potassium 3.9 mmol/L (3.5-5.1); Sodium 139 mmol/L (136-145)
[2025-01-09 12:58] LABS: Bilirubin, Total 0.6 mg/dL (0.2-1.0); Total Protein 7.1 g/dL (5.7-8.2)
[~2025-01-16] VITALS: Ht 157.5 cm; Wt 73.9 kg
[~2025-01-16 08:11] MED LIST changes: +ATOR10TA PO; -AZIT500T66 PO; -BENZ100C19 PO; -FLUT1SPR5; +GABA300T4 PO; -HYDR-4491 OR; +LEUC5TAB PO; -LORA-622 PO; -MECL12.586 PO; +METH2.5T PO; -PRED20TA2 PO; -ZOFR4T PO
[2025-01-16] MEDS ORDERED: BUPIVACAINE HCL 50 ML ONE (08:59)
[2025-01-16] MEDS ORDERED: BUPIVACAINE 0.25% INJ 50ML VIAL ONE (08:59)
[2025-01-16] MEDS: ACETAMINOPHEN IV 1000 MG/100ML (10MG/ML) IV ONE (10:51)
[2025-01-16] MEDS: CELECOXIB 100 MG CAP PO ONE (10:51)
[2025-01-16] MEDS: GABAPENTIN 300 MG CAP PO SCH (10:51)
[2025-01-16] MEDS ORDERED: PROPOFOL 10 MG/ML 20 ML IV ONE (10:53)
[2025-01-16] MEDS ORDERED: LIDOCAINE 2% (LOCAL ANESTH.) PF 5ml SDV ONE (10:53)
[2025-01-16] MEDS ORDERED: DexAMETHasone SOD PHOS 10MG/1ML VIAL INJ ONE (10:53)
[2025-01-16] MEDS ORDERED: KETOROLAC TROMETH 30 MG/ML 1ML VIAL ONE (10:53)
[2025-01-16] MEDS: ceFAZolin 2 GM/D5W100ml 100 ML IV ONE (10:53)
[2025-01-16] MEDS ORDERED: GLYCOPYRROLATE 0.2 MG/ML 1ML VIAL ONE (10:53)
[2025-01-16] MEDS ORDERED: ONDANSETRON HCL 4 MG/2 ML VIAL ONE (10:53)
[2025-01-16] MEDS ORDERED: fentaNYL CITRATE 100 MCG/2 ML VL ONE (10:53)
[2025-01-16] MEDS ORDERED: ESMOLOL HCL 10 ML IV ONE (11:14)
[2025-01-16 11:51] VITALS: TEMP 97.1; O2SAT 99
[2025-01-16] MEDS ORDERED: fentaNYL CITRATE 100 MCG/2 ML VL IV PRN (12:00)
[2025-01-16] MEDS ORDERED: NALOXONE HCL 0.4 MG/ML VIAL IV PRN (12:00)
[2025-01-16] MEDS ORDERED: ePHEDrine SULFATE 50 MG/ML AMP IV PRN (12:00)
[2025-01-16] MEDS ORDERED: ONDANSETRON HCL 4 MG/2 ML VIAL IV PRN (12:00)
[2025-01-16] MEDS ORDERED: hydrALAZINE HCL 20 MG/ML VL IV PRN (12:00)
[2025-01-16] MEDS ORDERED: FLUMAZENIL 0.1 MG/ML INJ 10ML MDV IV PRN (12:00)
[2025-01-16] MEDS: oxyCODONE HCL 5MG TAB PO PRN (12:24)
[2025-01-16] MEDS: HYDROmorphone HCL 2 MG/ML VL/or syr IV PRN (12:31)
[2025-01-16 13:17] VITALS: BP 149/71; PULSE 76; RESP 17; O2SAT 98
--- NOTE | 2025-01-16 13:45 | DVHOP2 ---
Operative Report - 2 Report Details Date: 01/16/25 Preop Diagnosis: 1. Right foot posterior tibial tendon tear 2. Right foot posterior tibial tenosynovitis 3. Right foot deltoid tear 4. Right ankle pain Postop Diagnosis: Same as preop Surgeon: Carrie Armando MD Anesthesiologist: See anesthesia Anesthesia: General Consent: The patient was informed of the risks and benefits of the procedure. These include but are not limited to complications of anesthesia, postoperative infection, incomplete relief of symptoms, recurrence of symptoms, damage to blood vessels, nerves and tendons, deep venous thrombosis, pulmonary embolism and possible need for repeat surgery in the future. Complications: None Estimated Blood Loss: Minimal Fluids: See anesthesia Findings: Significant tearing of the deltoid as well as posterior tibial tendon longitudinally Indications for Surgery: Worsening right ankle pain Name of Procedure Performed 1. Right posterior tibial tendon repair (92535) 2. Right posterior tibial tenosynovectomy (50704) 3. Right ankle deltoid lgiament repair (70149) Procedure Details Procedure Details: PRE-PROCEDURE INFORMATION: In the pre-op holding area, the extremity to be operated on was clearly marked and the patient verified correct laterality of the marking. The patient was transferred to the OR table and placed in a supine position. A timeout was performed in which identification of the correct patient, procedure, location, and materials was done. The right foot and leg were prepped and draped in normal sterile fashion. The foot and leg were exsanguinated and the thigh tourniquet was inflated to 250 mmHg. DESCRIPTION OF PROCEDURE: Attention was directed to the right medial ankle where a curvilinear incision was made to gain access to the PT tendon and the deltoid ligament. The incision was deepened through blunt and sharp dissection until the retinaculum of the PT tendon was visualized. Care was taken t hroughout the dissection avoiding damage to neurovascular and tendinous structures. The posterior tibial tendon was then inspected and seen to have longitudinal split tear posterior to the medial malleolus. It was also noted there was tearing of the superficial and deep deltoid ligament. Using a 15 blade, removal of the synovitis from the tendon was performed. The abnormal unhealthy tendon was also removed at that point. Using a 2-0 Ethibond, the suture was then passed in a baseball stitch fashion to allow for re tubularization of the tendon. We attempted at that point to place 2 knotless FiberTak anchors into the medial malleolus to repair the deltoid, but due to the lack of integrity of the bone, the sutures kept failing. It was decided at that point would use a 2-0 Ethibond suture to form bone tunnels in the medial malleolus and repaired the deltoid ligament in a horizontal mattress fashion. The retinaculum of the PT tendon was then closed. The wound was then closed with 2-0 Vicryl, 3-0 Monocryl, 4-0 nylon. All surgical wounds were irrigated copiously with saline and closed in layers with the aforementioned suture material. A dry sterile dressing was placed on the surgical extremity. The patient was placed in a cam boot. POSTOPERATIVE INFORMATION: The patient tolerated the above noted procedure and anesthesia well and was transferred to the PACU with vital signs stable, and vascular status intact with capillary refill intact to all digits. Postoperative instructions reviewed in detail with the patient with written instructions provided. Patient will return to clinic in approximately 10-14 days for first postoperative visit. Patient has the number of the clinic and was instructed to call prior to that time should any problems, questions, or concerns arise. Condition Good Disposition Home CARRIE ARMANDO DPM Jan 16, 2025 13:45
== END 2025-01-16 13:25 | disposition home or self-care (01) ==
LOC: SUR 08:11
PROVIDERS: ATTEND Podiatrist
DX: S96.811A Strain of other specified muscles and tendons at ankle and foot level, right foot, initial encounter (principal); M65.861 Other synovitis and tenosynovitis, right lower leg; S93.421A Sprain of deltoid ligament of right ankle, initial encounter; M06.9 Rheumatoid arthritis, unspecified; G89.18 Other acute postprocedural pain; I10 Essential (primary) hypertension; E66.3 Overweight; Z68.29 Body mass index [BMI] 29.0-29.9, adult; Z79.899 Other long term (current) drug therapy; Z98.891 History of uterine scar from previous surgery; Z87.891 Personal history of nicotine dependence; Z88.2 Allergy status to sulfonamides; X58.XXXA Exposure to other specified factors, initial encounter; Y93.89 Activity, other specified; Y92.89 Other specified places as the place of occurrence of the external cause; Y99.8 Other external cause status
CPT/HCPCS: 27658; 27695; 28086; 36415; 64450; 80053; 81001; 85025; 85610; 85730; C1713; J1100; J1171; J1885; J2003; J2405; J2704; J3010; J3490; J0131

== ENCOUNTER → 2025-05-14 | Outpatient (CLI) | payer OTHER ==
[2025-05-14 10:26] LABS: Alanine Aminotransferase 17 U/L (7-40); Albumin 4.4 g/dL (3.2-4.8); Alkaline Phosphatase 88 U/L (46-116); Anion Gap 10 (5-15); BUN/Creatinine Ratio 21.8 (10.0-20.0); Blood Urea Nitrogen 17 mg/dL (9-23); Calcium 9.9 mg/dL (8.7-10.4); Carbon Dioxide 26 mmol/L (20-31); Chloride 105 mmol/L (98-107); HDL Cholesterol 49 mg/dL (40-59); Sodium 141 mmol/L (136-145); Total Protein 6.9 g/dL (5.7-8.2)
[2025-05-14 10:27] LABS: Bilirubin, Total 0.7 mg/dL (0.2-1.0); Cholesterol 216 mg/dL (< 200); Glucose 109 mg/dL (74-106); Potassium 3.5 mmol/L (3.5-5.1); Triglycerides 191 mg/dL (< 150)
== END | disposition home or self-care (01) ==
LOC: LAB 08:29
PROVIDERS: ATTEND Student in an Organized Health Care Education/Training Program
DX: E78.5 Hyperlipidemia, unspecified (principal)
CPT/HCPCS: 36415; 80053; 80061

== ENCOUNTER → 2025-05-14 | Outpatient (CLI) | payer OTHER | END | disposition home or self-care (01) | LOC: LAB 09:58 | PROVIDERS: ATTEND Student in an Organized Health Care Education/Training Program | DX: Z12.11 Encounter for screening for malignant neoplasm of colon (principal) | CPT/HCPCS: 82270 ==

== ENCOUNTER 2025-06-04 09:11 | Outpatient (CLI) | payer OTHER ==
[2025-06-04 10:17] LABS: Hematocrit 37.3 % (36.0-46.0); Hemoglobin 12.5 g/dL (12.2-16.2); Mean Corpuscular Hemoglobin 28.5 pg (28.0-32.0); Mean Corpuscular Volume 85.2 fL (80.0-100.0); Nucleated Red Blood Cells % 0.1 %
[2025-06-04 11:09] LABS: Alanine Aminotransferase 18 U/L (7-40); Albumin 4.1 g/dL (3.2-4.8); Alkaline Phosphatase 79 U/L (46-116); Anion Gap 7 (5-15); BUN/Creatinine Ratio 14.9 (10.0-20.0); Blood Urea Nitrogen 11 mg/dL (9-23); Calcium 9.5 mg/dL (8.7-10.4); Carbon Dioxide 27 mmol/L (20-31); Chloride 106 mmol/L (98-107); Glucose 99 mg/dL (74-106); Potassium 3.7 mmol/L (3.5-5.1); Sodium 140 mmol/L (136-145); Total Protein 6.5 g/dL (5.7-8.2)
[2025-06-04 11:10] LABS: Bilirubin, Total 0.6 mg/dL (0.2-1.0)
== END 2025-06-04 17:00 | disposition home or self-care (01) ==
LOC: LAB 09:11
PROVIDERS: ATTEND Internal Medicine Rheumatology
DX: M46.90 Unspecified inflammatory spondylopathy, site unspecified (principal)
CPT/HCPCS: 36415; 80053; 85025; 85652; 86141

== ENCOUNTER 2025-07-15 10:08 | Inpatient (IN) | payer OTHER ==
[~2025-07-15] VITALS: Ht 157.5 cm; Wt 73.0 kg
--- NOTE | 2025-07-15 10:37 | ED.PDOC ---
HPI (NEURO) HPI Comments This is a 70 year-old female, with a PMHX of HTN, High Lipids, and rheumatoid Arthritis, who presents to the ED with a chief complaint of numbness to bilateral arms and L posterior shoulder pain radiating to the left arm for X3-5 days. Patient additionally reports L posterior tongue numbness as of X2 days ago. Patient states numbness is constant, with some alleviation noted by clenching fists. Patient denies this happening before and has no further complaints or modifying factors at this time. Patient otherwise denies further associated symptoms of slurred speech, blurred vision, N/V, fever, or chills. Chief Complaint: Upper Extremity Time Seen by MD: 10:27 Primary Care Provider: Baig Reviewed Notes: Nurses Notes, Medications, Allergies Information Source: Patient Mode of Arrival: Ambulatory Severity: Moderate Timing: Days Duration: Since onset Numbness Location: (R) Arm, (L) Arm Onset: At rest, With light exertion, With heavy exertion Circumstances: Spontaneous Associated Signs and Symptoms: Numbness (bilateral arm ) Past Medical History PAST MEDICAL HISTORY: High Lipids, HTN Past Medical History (Other): Rheumatoid arthritis Surgical History: Surgical History (Other): Right Ankle COMB SETTER History: Denies all COMB SETTER Hx Family History Family History: No family hx of DM, No family hx of HTN Social History Smoker: Non-Smoker Alcohol: Rarely Drugs: Denies Drug Use Lives In: Home Constitutional: denies: chills, diaphoresis, fatigue, fever, malaise, sweats, weakness, others EENTM: denies: blurred vision, double vision, ear bleeding, ear discharge, ear drainage, ear pain, ear ringing, eye pain, eye redness, hearing loss, mouth pa in, mouth swelling, nasal discharge, nose bleeding, nose congestion, nose pain, photophobia, tearing, throat pain, throat swelling, voice changes, others Respiratory: denies: cough, hemoptysis, orthopnea, SOB at rest, shortness of breath, SOB with excertion, stridor, wheezing, others Cardiovascular: denies: chest pain, dizzy spells, diaphoresis, Dyspnea on exertion, edema, irregular heart beat, left arm pain, lightheadedness, palpitations, PND, syncope, others Gastrointestinal: denies: abdomen distended, abdominal pain, blood streaked bowels, constipated, diarrhea, dysphagia, difficulty swallowing, hematemesis, melena, nausea, poor appetite, poor fluid intake, rectal bleeding, rectal pain, vomiting, others Genitourinary: denies: abnormal vagina bleeding, burning, dyspareunia, dysuria, flank pain, frequency, hematuria, incontinence, pain, , vagina discharge, urgency, others Neurological: reports: numbness (bilateral arm numbness ); denies: dizziness, fainting, headache, left sided numbness, left sided weakness, paresthesia, pre- existing deficit, right sided numbness, right sided weakness, seizure, speech problems, tingling, tremors, weakness, others Musculoskeletal: reports: others (L arm pain ); denies: back pain, gout, joint pain, joint swelling, muscle pain, muscle stiffness, neck pain Integumetry: denies: bruises, change in color, change in hair/nails, dryness, laceration, lesions, lumps, rash, wounds, others Allergic/Immunocompromised: denies: Difficulty Healing, Frequent Infections, Hives, Itching, others Hematologic/Lymphatic: denies: anemia, blood clots, easy bleeding, easy bruising, swollen glands, others Endocrine: denies: excessive hunger, excessive sweating, excessive thirst, excessive urination, flushing, intolerance to cold, intolerance to heat, unexplained weight gain, unexplained weight loss, others Psychiatric: denies: anxiety, bipolar disorder, depression, hopeless, panic disorder, schizophrenia, sleepless, suicidal, others All Other Systems: Reviewed and Negative Physical Exam General Appearance: No Apparent Distress HEENT: Other (Pupils and face symmetric. Moist mucous membranes.) Neck: Full Range of Motion, Normal Inspection Respiratory: Lungs Clear, No Accessory Muscle Use, No Respiratory Distress, Normal Breath Sounds Cardiovascular: No Edema, No JVD, Regular Rate/Rhythm Breast Exam: Deferred Gastrointestinal: Non Tender, Soft Genitalia: Deferred Pelvic: Deferred Rectal: Deferred Extremities: Normal inspection, Normal range of motion, Non-tender, No pedal edema Neurologic: Alert (Oriented x4), Normal Affect, Normal Mood, Other (Ambulatory. No gross motor deficit. Subjective diminished light touch sensation bilateral upper extremities.) Cerebellar Function: NOT DONE Reflexes: NOT DONE Skin: Dry, Normal Color, Warm Lymphatic: NOT DONE EKG EKG : Pulse Rate (adult): 82 Cardiac Rhythm: NSR Block: None Hypertrophy: LAE ST: Normal Comments Sinus rhythm, rate 82, normal intervals, left axis deviation, possible old inferior infarct, nonspecific T change. Was a procedure done? Was a procedure done?: No Differential Diagnosis (SZ) Seizure: CVA/TIA, Hypocalcemia, Hypoglycemia, Hyponatremia, Mass Lesion General Weakness: Anemia, Dehydration, Electrolyte imbalance Headache: Migraine, Intracerebral Hemorrhage, Subarachnoid Hemorrhage, Subdural Hemorrhage X-Ray, Labs, Meds, VS Vital Signs Date Time Temp Pulse Resp B/P (MAP) Pulse Ox O2 Delivery O2 Flow Rate FiO2 07/15/25 15:28 80 16 146/78 (100) 98 07/15/25 12:50 82 07/15/25 11:56 78 18 98 Room Air* 0 21 07/15/25 11:54 98.4 77 18 158/78 (104) 95 98.4 07/15/25 10:24 82 07/15/25 10:12 98.8 90 19 120/75 97 98.8 Lab Test 07/15/25 11:38 07/15/25 10:53 07/15/25 10:19 Range/Units Troponin I High Sensitivity 4 3 L </=34 ng/L White Blood Count 8.2 4.4-10.8 10^3/uL Red Blood Count 4.51 4.0-5.20 10^6/uL Hemoglobin 12.9 12.2-16.2 g/dL Hematocrit 38.6 36.0-46.0 % Mean Corpuscular Volume 85.6 80.0-100.0 fL Mean Corpuscular Hemoglobin 28.6 28.0-32.0 pg Mean Corpuscular Hemoglobin Concent 33.5 32.0-36.0 g/dL Red Cell Distribution Width 15.0 H 11.8-14.3 % Platelet Count 309 140-450 10^3/uL Mean Platelet Volume 9.8 6.9-10.8 fL Neutrophils (%) (Auto) 61.9 37.0-80.0 % Lymphocytes (%) (Auto) 30.0 10.0-50.0 % Monocytes (%) (Auto) 6.6 0.0-12.0 % Eosinophils (%) (Auto) 0.9 0.0-7.0 % Basophils (%) (Auto) 0.6 0.0-2.0 % Neutrophils # (Auto) 5.1 1.6-8.6 10 ^3/uL Lymphocytes # (Auto) 2.5 0.4-5.4 10 ^3/uL Monocytes # (Auto) 0.5 0-1.3 10 ^3/uL Eosinophils # (Auto) 0.1 0-0.8 10 ^3/uL Basophils # (Auto) 0 0-0.2 10 ^3/uL Nucleated Red Blood Cells 0.0 % Sodium Level 143 136-145 mmol/L Potassium Level 3.4 L 3.5-5.1 mmol/L Chloride Level 106 98-107 mmol/L Carbon Dioxide Level 26 20-31 mmol/L Anion Gap 11 5-15 Blood Urea Nitrogen 18 9-23 mg/dL Creatinine 0.98 0.550-1.02 mg/dL Glomerular Filtration Rate Calc 62 >90 mL/min BUN/Creatinine Ratio 18.4 10.0-20.0 Serum Glucose 107 H 74-106 mg/dL Calcium Level 9.5 8.7-10.4 mg/dL B-Type Natriuretic Peptide 33.19 0-100 pg/mL POC Glucose 122 H 70-106 mg/dl Current Medications Medications (Trade) Dose Ordered Sig/Adina Route Start Time Stop Time Status Last Admin Potassium Bicarbonate (Klor-Con/Ef) 50 meq ONCE ONCE PO 07/15/25 11:45 07/15/25 12:25 DC 07/15/25 12:29 [place] [id number] Ph: [phone] DIAGNOSTIC IMAGING Diagnostic Imaging Report : [id number] Signed PATIENT: VALARIE NEGRO EACCT: [id number] UNIT: [id number] : 1955 LOC: ER ROOM / BED: / AGE / SEX: 70 / F ADM STATUS: REG ER SERVICE 1033 ORDERING PHYSICIAN: LAURIE HILLMAN MD PROCEDURE(s): CXRP - CHEST PORTABLE REASON: BUE numbness ORDER NUMBER(s): [id number], ACCESSION NUMBER(s): [id number] CHEST RADIOGRAPH REASON FOR EXAM: BUE numbness COMPARISON: CHEST PORTABLE on DOS: 04/22/22, CXRP on DOS: 04/22/22 TECHNIQUE: One view of the chest is provided FINDINGS: The cardiomediastinal silhouette is within normal limits for technique. There is no focal airspace disease. There is no significant pleural effusion. No acute bony abnormality is identified. IMPRESSION: No radiographic evidence of acute cardiopulmonary process. [place] [address] Ph: [phone] DIAGNOSTIC IMAGING Diagnostic Imaging Report : [id number] Signed PATIENT: VALARIE NEGRO EACCT: [id number] UNIT: [id number] : 1955 LOC: ER ROOM / BED: / AGE / SEX: 70 / F ADM STATUS: REG ER SERVICE 1033 ORDERING PHYSICIAN: LAURIE HILLMAN MD PROCEDURE(s): HWOCT - HEAD WITHOUT CONTRAST REASON: BUE and L posterior tongue numbness ORDER NUMBER(s): [id number], ACCESSION NUMBER(s): [id number] CLINICAL HISTORY: BUE and L posterior tongue numbness TECHNIQUE: Helical scanning was performed of the head from the skull base to the vertex. Multiplanar reconstructions were performed. This exam was performed according to our departmental dose optimization program. Up-to-date CT equipment and radiation dose reduction techniques are utilized as appropriate. CTDI 54.9 DLP 1080.7 COMPARISON: HEAD WITHOUT CONTRAST on DOS: 04/22/22, HWOCT on DOS: 04/22/22 FINDINGS: There is no evidence for acute intracranial hemorrhage, acute ischemic changes, mass, mass effect, or extra-axial fluid collection. There is no hydrocephalus or midline shift. There is no effacement of the cerebral sulci and basal subarachnoid cisterns. The mcknight-white matter differentiation is well maintained. The imaged paranasal sinuses are clear. The sella is expanded and empty. IMPRESSION: NO ACUTE INTRACRANIAL ABNORMALITY SEEN. X-Ray, Labs, Meds, VS Comment 70-year-old female with a history of hypertension, dyslipidemia and RA complaining of bilateral upper extremity and left posterior tongue numbness for the last 3-5 days, associated with left posterior shoulder pain radiating to the left upper extremity. Vitals remarkable Exam remarkable for subjective diminished light touch sensation bilateral upper extremities Rhythm strip independently interpreted by me: Sinus rhythm, rate 82, no ectopy. CT head and Chest x-ray unremarkable CBC, basic metabolic panel, BNP and troponins reviewed. Remarkable for potassium 3.4. UA pending. Patient received the following in the ED: Effervescent potassium 50 mEq p.o. There were no new neurologic changes during the patient's stay in the ED. Pt has risk factors for CVA/thromboembolic disease. Plan is to admit the patient for brain MRI and Neurology evaluation. Time of 1ST Reevaluation: 11:15 Reevaluation 1ST: Unchanged Patient Education/Counseling: Diagnosis, Treatment, Need For Follow Up Family Education/Counseling: No Family Present Medical Screening: No EMC Exist At This Time Departure 1 Departure Time of Disposition: 11:02 Impression: Primary Impression: Numbness of tongue Additional Impression: Numbness and tingling of both upper extremities Disposition: ADMITTED INPATIENT Admit to: Tele Condition: Guarded Critical Care Note Critical Care Time?: No Stability Stability form required: No Heart Score Heart Score: Heart Score Response (Comments) Value History N/A 0 EKG N/A 0 Age N/A 0 Risk Factors N/A 0 Troponin N/A 0 Total 0 I personally scribed for LAURIE HILLMAN MD (CHRISTA) on 07/15/25 at 10:37. Electronically submitted by Ana Moncada ([employer]). I personally scribed for LAURIE HILLMAN MD (CHRISTA) on 07/15/25 at 11:04. Electronically submitted by Ana Moncada (for; to [facility]do[facility] Centers). I personally scribed for LAURIE HILLMAN MD (CHRISTA) on 07/15/25 at 11:18. Electronically submitted by Ana Moncada ([employer]). I personally scribed for LAURIE HILLMAN MD (CHRISTA) on 07/15/25 at 12:50. Electronically submitted by Ana Moncada (for; to (do) Centers). LAURIE HILLMAN MD Jul 15, 2025 10:37
--- NOTE | 2025-07-15 11:01 | DVH ---
CHEST RADIOGRAPH REASON FOR EXAM: BUE numbness COMPARISON: CHEST PORTABLE on DOS: 04/22/22, CXRP on DOS: 04/22/22 TECHNIQUE: One view of the chest is provided FINDINGS: The cardiomediastinal silhouette is within normal limits for technique. There is no focal a irspace disease. There is no significant pleural effusion. No acute bony abnormality is identified. IMPRESSION: No radiographic evidence of acute cardiopulmonary process.
--- NOTE | 2025-07-15 11:15 | DVH ---
CLINICAL HISTORY: BUE and L posterior tongue numbness TECHNIQUE: Helical scanning was performed of the head from the skull base to the vertex. Multiplanar reconstructions were performed. This exam was performed according to our departmental dose optimizat ion program. Up-to-date CT equipment and radiation dose reduction techniques are utilized as appropri ate. CTDI 54.9 DLP 1080.7 COMPARISON: HEAD WITHOUT CONTRAST on DOS: 04/22/22, HWOCT on DOS: 04/22/22 FINDINGS: There is no evidence for acute intracranial hemorrhage, acute ischemic changes, mass, mass effect, or extra-axial fluid collection. There is no hydrocephalus or midline shift. There is no effacement of the cerebral sulci and basal subarachnoid cisterns. The mcknight-white matter differentiation is well [place] ntained. The imaged paranasal sinuses are clear. The sella is expanded and empty. IMPRESSION: NO ACUTE INTRACRANIAL ABNORMALITY SEEN.
[2025-07-15 11:37] LABS: Hematocrit 38.6 % (36.0-46.0); Hemoglobin 12.9 g/dL (12.2-16.2); Mean Corpuscular Hemoglobin 28.6 pg (28.0-32.0); Mean Corpuscular Volume 85.6 fL (80.0-100.0); Nucleated Red Blood Cells % 0.0 %
[2025-07-15 11:38] LABS: Anion Gap 11 (5-15); Carbon Dioxide 26 mmol/L (20-31); Chloride 106 mmol/L (98-107); Sodium 143 mmol/L (136-145)
[2025-07-15 11:40] LABS: Calcium 9.5 mg/dL (8.7-10.4)
[2025-07-15 11:42] LABS: Potassium 3.4 mmol/L (3.5-5.1)
[2025-07-15 11:44] LABS: Blood Urea Nitrogen 18 mg/dL (9-23)
[2025-07-15 11:45] LABS: BUN/Creatinine Ratio 18.4 (10.0-20.0)
[2025-07-15 11:56] VITALS: PULSE 78; RESP 18; O2SAT 98
[2025-07-15 11:58] LABS: Glucose 107 mg/dL (74-106)
[2025-07-15] MEDS: POTASSIUM EFFERVESENT TAB 25 MEQ PO ONE (12:29)
--- NOTE | 2025-07-15 13:30 | ECG ---
[facility] Test Date: 2025-07-15 Test Time: 10:24:07 Pat Name: VALARIE NEGRO Department: ED Room: 0214T Gender: F Humanities Department Chair: RADHA : 1955 Requested By: LAURIE CONTRERAS Order Number: [id number] Reading MD: Tyson Diaz Measurements Intervals [place] Rate: 82 P: 42 CA: 136 QRS: 13 QRSD: 82 T: 37 QT: 366 QTc: 428 Interpretive Statements Sinus rhythm Low voltage, precordial leads LVH by voltage Electronically Signed On 07-18-2025 15:03:43 PDT by Tyson Diaz Please click the below link to view image of tracing.
--- NOTE | 2025-07-15 16:57 | DVHHP2 ---
History of Present Illness Reason for Visit: Bilateral upper extremity numbness and tingling History of Present Illness 70-year-old female with primary medical history of hypertension, high lipids, rheumatoid arthritis, presented to the ED with chief complaint of numbness to bilateral arms and left posterior shoulder pain radiating to left arm for 3-5 days, patient also states left posterior tongue numbness x2 days ago- numbness to tongue patient states is intermittent and it comes and goes, patient is able to swallow without problem, patient denies any other associated symptoms, patient does not have slurred speech, blurred vision, facial symmetry is equal. CT of brain is negative for any acute abnormalities. Patient is being admitted for Neurology consult and brain MRI, to telemetry. Renal/: Chronic renal insuff Past Medical History Hyperlipidemia, hypertension and rheumatoid arthritis Past Surgical History and right ankle Family History Denies Smoke: No ALCOHOL: none Drugs: None Lives: with Family Review of Systems Constitutional: No: Fever, Chills, Sweats, Weakness, Malaise, Other Eyes: No: Pain, Vision change, Conjunctivae inflammation, Eyelid inflammation, Other, Redness ENT: Other (Tongue numbness); No: Ear pain, Ear discharge, Nose pain, Nose discharge, Nose congestion, Mouth pain, Mouth swelling, Throat pain, Throat swelling Respiratory: No: Cough, Dry, Shortness of breath, SOB with excertion, Wheezing, Hemoptysis, Pleuritic Pain, Sputum, Wheezing, Other Cardiovascular: No: Chest Pain, Palpitations, Orthopnea, Paroxysmal Noc. Dyspnea, Edema, Lt Headedness, Other Gastrointestinal: No: Nausea, Vomiting, Abdominal Pain, Diarrhea, Constipation, Melena, Hematochezia, Other Genitourinary: No Dysuria, No Frequency, No Incontinence, No Hematuria, No Retention, No Other Musculoskeletal: No: other, neck pain, shoulder pain, arm pain, back pain, hand pain, leg pain, foot pain Skin: No: Rash, Lesions, Jaundice, Bruising, Other Neurological: Numbness (Numbness and tingling to the bilateral upper extremities); No: Weakness, Incoordination, Change in speech, Confusion, Seizures, Other Allergies: Coded Allergies: Aspirin (Verified Allergy, Unknown, 08/02/24) Sulfa Antibiotics (Verified Allergy, Unknown, 12/15/16) Exam Vital Signs Vital Signs Date Time Temp Pulse Resp B/P (MAP) Pulse Ox O2 Delivery O2 Flow Rate FiO2 07/15/25 15:28 80 16 146/78 (100) 98 07/15/25 11:56 Room Air* 0 21 07/15/25 11:54 98.4 98.4 General Appearance: Alert, Oriented X3, Cooperative, No acute distress HEENT: Atraumatic, PERRLA, EOMI, Mucous membr. moist/pink Respiratory: Clear to auscultation, Normal air movement Cardiovascular: Regular rate, Normal S1, Normal S2, No murmurs Abdominal: Normal bowel sounds, Soft, No tenderness, No hepatospenomegaly, No masses Extremities: No clubbing, No cyanosis, No edema, Normal pulses, No tenderness/swelling, Other (Reports upper extremity tingling numbness) Skin: No rashes, No breakdown, No significant lesion Neuro: Normal gait, Normal speech, Strength at 5/5 X4 ext, Normal tone, Sensation intact, Cranial nerves 3-12 NL, Reflexes 2+ Psych/Mental Status: Mental status NL, Mood NL Labs/Xrays Reviewed with patient Labs Test 07/15/25 11:38 07/15/25 10:53 07/15/25 10:19 Range/Units Troponin I High Sensitivity 4 </=34 ng/L White Blood Count 8.2 4.4-10.8 10^3/uL Red Blood Count 4.51 4.0-5.20 10^6/uL Hemoglobin 12.9 12.2-16.2 g/dL Hematocrit 38.6 36.0-46.0 % Mean Corpuscular Volume 85.6 80.0-100.0 fL Mean Corpuscular Hemoglobin 28.6 28.0-32.0 pg Mean Corpuscular Hemoglobin Concent 33.5 32.0-36.0 g/dL Red Cell Distribution Width 15.0 H 11.8-14.3 % Platelet Count 309 140-450 10^3/uL Mean Platelet Volume 9.8 6.9-10.8 fL Neutrophils (%) (Auto) 61.9 37.0-80.0 % Lymphocytes (%) (Auto) 30.0 10.0-50.0 % Monocytes (%) (Auto) 6.6 0.0-12.0 % Eosinophils (%) (Auto) 0.9 0.0-7.0 % Basophils (%) (Auto) 0.6 0.0-2.0 % Neutrophils # (Auto) 5.1 1.6-8.6 10 ^3/uL Lymphocytes # (Auto) 2.5 0.4-5.4 10 ^3/uL Monocytes # (Auto) 0.5 0-1.3 10 ^3/uL Eosinophils # (Auto) 0.1 0-0.8 10 ^3/uL Basophils # (Auto) 0 0-0.2 10 ^3/uL Nucleated Red Blood Cells 0.0 % Sodium Level 143 136-145 mmol/L Potassium Level 3.4 L 3.5-5.1 mmol/L Chloride Level 106 98-107 mmol/L Carbon Dioxide Level 26 20-31 mmol/L Anion Gap 11 5-15 Blood Urea Nitrogen 18 9-23 mg/dL Creatinine 0.98 0.550-1.02 mg/dL Glomerular Filtration Rate Calc 62 >90 mL/min BUN/Creatinine Ratio 18.4 10.0-20.0 Serum Glucose 107 H 74-106 mg/dL Calcium Level 9.5 8.7-10.4 mg/dL B-Type Natriuretic Peptide 33.19 0-100 pg/mL POC Glucose 122 H 70-106 mg/dl SEPSIS Sepsis Screen Date sepsis recognized/suspect: Jul 15, 2025 Time Sepsis recognized/suspect: 1012 Recent Procedure: No On Antibiotic Therapy: No Respiratory Rate >20: No Heart Rate >90: No Temp<36 C (96.8 F) or >38.3 C: No SBP <90 or MAP <65 mmHG: No New Acute Mental Status Change: No Is the patient on CPAP, BIPAP,: No Physician Orders Chest Portable (07/15/25 10:33) Head Without Contrast (07/15/25 10:33) Admit (07/15/25 16:46) Allergies (07/15/25 16:46) Acetaminophen Tablet (Tylenol Tablet) (07/15/25 17:00) Hydrocodone-Acet 5/325mg Tab ([place]ollister 32 (07/15/25 17:00) Ondansetron Hcl (Zofran) (07/15/25 17:00) Docusate Sodium Capsule (Colace Capsule) (07/15/25 17:00) Fall Risk Precautions In Place QSHIFT (07/15/25 16:46) Complete Blood Count (07/16/25 04:00) Comprehensive Metabolic Panel (07/16/25 04:00) Cardiac Diet-2gna,Lofat,Lochol (07/15/25 Dinner) Condition: Serious (07/15/25 16:46) Nitroglycerin Sublingual (Ntrostat Subli (07/15/25 17:00) Morphine Sulfate Injection (07/15/25 17:00) Stat Ekg For Chest Pain (07/15/25 16:46) Notify Of Changes From Base (07/15/25 16:46) Lead Caster Helper For 24 Hours (07/15/25 16:46) Emergency Dysrhythmia Protocol (07/15/25 16:46) Rhythm Strips Once Every Shift (07/15/25 16:46) Oxygen By Nasal Cannula (07/15/25 16:46) * Neurology Consult (07/15/25 16:46) Vital Signs Date Time Temp Pulse Resp B/P (MAP) Pulse Ox O2 Delivery O2 Flow Rate FiO2 07/15/25 15:28 80 16 146/78 (100) 98 07/15/25 12:50 82 07/15/25 11:56 78 18 98 Room Air* 0 21 07/15/25 11:54 98.4 77 18 158/78 (104) 95 98.4 07/15/25 10:24 82 07/15/25 10:12 98.8 90 19 120/75 97 98.8 Laboratory Tests Test 07/15/25 10:53 White Blood Count 8.2 10^3/uL (4.4-10.8) Medications Medications Dose Ordered Sig/Adina Route Start Time Stop Time Status Last Admin Dose Admin Potassium Bicarbonate 50 meq ONCE ONCE PO 07/15/25 11:45 07/15/25 12:25 DC 07/15/25 12:29 50 MEQ Assessment/Plan Assessment/Plan Upper extremity numbness/tingling/tongue partial numbness/rule out CVA Admit telemetry CT head negative Consult neurology Brain MRI if neurology recommends an orders Troponins noted to be negative EKG is sinus rhythm Chronic Hypertension Continue home losartan Hypokalemia Potassium supplementation Labs in a.m. Rheumatoid arthritis Hollister for pain p.r.n. PPX/diet Cardiac diet GI and VTE prophylaxis not indicated Plan discussed with: Patient My Orders Orders - EUNICE HICKMAN Procedure Category Date Status Time Admit ADMIT 07/15/25 Transmitted 16:46 Allergies [facility] 07/15/25 Transmitted 16:46 Acetaminophen Tablet [facility] 07/15/25 Transmitted (Tylenol Tablet) 17:00 Hydrocodone-Acet [facility] 07/15/25 Transmitted 5/325mg Tab (Hollister 17:00 Ondansetron Hcl [facility] 07/15/25 Transmitted (Zofran) 17:00 Docusate Sodium [facility] 07/15/25 Transmitted Capsule (Colace 17:00 Fall Risk Precautions [facility] 07/15/[address] 16:46 Complete Blood Count LAB 07/16/25 Verified 04:00 Comprehensive LAB 07/16/25 Verified Metabolic Panel 04:00 Cardiac DIET 07/15/25 Transmitted Diet-2gna,Lofat,Lochol Dinner Condition: Serious [facility] 07/15/25 Transmitted 16:46 Nitroglycerin [facility] 07/15/25 Transmitted Sublingual (Ntrostat 17:00 Morphine Sulfate [facility] 07/15/25 Transmitted Injection 17:00 Stat Ekg For Chest [facility] 07/15/25 Transmitted Pain 16:46 Notify Md Of Changes [facility] 07/15/25 Transmitted From Base 16:46 Lead Caster Helper For [facility] 07/15/25 Transmitted 24 Hours 16:46 Emergency Dysrhythmia [facility] 07/15/25 Transmitted Protocol 16:46 Rhythm Strips Once [facility] 07/15/25 Transmitted Every Shift 16:46 Oxygen By Nasal RT 07/15/25 Transmitted Cannula 16:46 * Neurology Consult CONS 07/15/25 Transmitted 16:46 Date of Service: Jul 15, 2025 Billing Provider: EUNICE HICKMAN Common Visit Codes: [id number] INP/OBS CARE (HIGH) EUNICE HICKMAN Jul 15, 2025 16:57
[2025-07-15] MEDS ORDERED: DOCUSATE SOD 100 MG CAP PO PRN (17:00)
[2025-07-15] MEDS ORDERED: MORPHINE SULFATE INJ 2 MG/ml SYRG IV PRN (17:00)
[2025-07-15] MEDS ORDERED: HYDROcodone-ACET 5/325MG TAB PO PRN (17:00)
[2025-07-15] MEDS ORDERED: NITROGLYCERIN 0.4 MG SL TAB SL PRN (17:00)
[2025-07-15] MEDS ORDERED: ACETAMINOPHEN 325 MG TAB PO PRN (17:00)
[2025-07-15] MEDS ORDERED: ONDANSETRON HCL 4 MG/2 ML VIAL IV PRN (17:00)
[2025-07-15 22:26] VITALS: BP 150/89; PULSE 71; RESP 16; TEMP 98.2; O2SAT 97
[2025-07-15 22:40] VITALS: PULSE 72; RESP 18; O2SAT 98
[2025-07-15] MEDS ORDERED: ATOR40TA52 PO (22:50)
[2025-07-15] MEDS ORDERED: LEUC5TAB PO (22:50)
[2025-07-15] MEDS ORDERED: METH2.5S SC (22:52)
[2025-07-15 22:53] VITALS: BP 150/89; PULSE 97; RESP 16; TEMP 98.2; O2SAT 100
[2025-07-15] MEDS: ATORVASTATIN 20 MG TAB PO SCH (23:55)
[2025-07-16] VITALS (8 sets, daily range): BP systolic 109–149; BP diastolic 54–86; PULSE 62–82; RESP 15–18; TEMP 97.9–98.2; O2SAT 95–99
[2025-07-16 06:32] LABS: Hematocrit 35.6 % (36.0-46.0); Hemoglobin 12.0 g/dL (12.2-16.2); Mean Corpuscular Hemoglobin 28.6 pg (28.0-32.0); Mean Corpuscular Volume 85.2 fL (80.0-100.0); Nucleated Red Blood Cells % 0.2 %
[2025-07-16 06:53] LABS: Alanine Aminotransferase 14 U/L (7-40); Albumin 3.9 g/dL (3.2-4.8); Alkaline Phosphatase 72 U/L (46-116); Anion Gap 10 (5-15); BUN/Creatinine Ratio 27.7 (10.0-20.0); Blood Urea Nitrogen 18 mg/dL (9-23); Calcium 9.0 mg/dL (8.7-10.4); Carbon Dioxide 26 mmol/L (20-31); Chloride 105 mmol/L (98-107); Glucose 92 mg/dL (74-106); Sodium 141 mmol/L (136-145); Total Protein 6.3 g/dL (5.7-8.2)
[2025-07-16 06:54] LABS: Bilirubin, Total 0.7 mg/dL (0.2-1.0); Potassium 3.5 mmol/L (3.5-5.1)
[2025-07-16] MEDS: LOSARTAN POTASSIUM 50 MG TAB PO SCH (10:53)
--- NOTE | 2025-07-16 18:54 | DVHINCON2 ---
Date of service: Jul 16, [address] Villa Reason for Consultation Numbness and tingling to bilateral upper extremities rule out CVA History of Present Illness Ms. Garcia is a 70 years old right-handed female with a history of hypertension, dyslipidemia, rheumatoid arthritis, she came to the [facility] on 07/15/2025 with a chief complaint of numbness. At this time, she is alert and fully oriented, she provided the following history For last three days, she has constant fluctuating aching pain in the left neck, shoulder, and whole left upper extremity all the way down to all the fingers. Since 08/12/2025 she has intermittent numbness in both hands, and all the bilateral fingers She denies paresthesia in the lower extremities, she has no weakness in the arms, legs, she has not had similar problems previously 3 times around 2014, 2017, 2022 she had constant dizziness/spinning sensation with imbalance, nausea, vomiting, lasted for three days, four days and two days respectively. The symptoms resolved without specific treatment. No hearing changes CBC, 07/15/2025: Unremarkable CMP, 07/16/2025: Unremarkable HGB A1c, 02/15/2025: 6.4 TG/HDL/LDL/HDL, 05/14/2025: 191/216/145/49 TSH, 02/15/2025: 2.31 CT head, 07/15/2025: NO ACUTE INTRACRANIAL ABNORMALITY SEEN Past Medical History Hypertension, dyslipidemia, rheumatoid arthritis Past Surgical History , right ankle tendon surgery Family History: Patient reports no known family medical history. Family History Arthritis Social History She has no history of tobacco smoking, drug or alcohol abuse Allergies: Coded Allergies: Aspirin (Verified Allergy, Unknown, 08/02/24) Sulfa Antibiotics (Verified Allergy, Unknown, 12/15/16) Home Meds Reported Medications Methotrexate (Xatmep) 2.5 Mg/Ml Che, 2.5 MG SC, ML 07/15/25 Atorvastatin Calcium (ATORVASTATIN CALCIUM) 40 Mg Tab, 1 TAB PO DAILY 07/15/25 Leucovorin Calcium (Leucovorin Calcium) 5 Mg Tab, 5 MG PO, TAB 07/15/25 Methotrexate (Methotrexate) 2.5 Mg Tab, PO QWEEKLY, TAB 01/10/25 Gabapentin (Once-Daily) (Gabapentin) 300 Mg Tab, PO DAILY, TAB 01/10/25 Losartan Potassium (Losartan Potassium) 50 Mg Tab, 50 MG PO DAILY, TAB 12/21/22 Discontinued Reported Medications Atorvastatin Calcium (Lipitor) 10 Mg Tab, PO DAILY, TAB 01/10/25 Leucovorin Calcium (Leucovorin Calcium) 5 Mg Tab, PO DAILY, TAB 01/10/25 Current Medications Current Medications Medications (Trade) Dose Ordered Sig/Adina Route PRN Reason Start Time Stop Time Status Last Admin Losartan Potassium (Cozaar Tablet) 50 mg DAILY PO 07/16/25 10:00 07/16/25 10:53 Atorvastatin Calcium (Lipitor) 10 mg HS PO 07/15/25 22:00 07/15/25 23:55 Review of Systems As above, the other systems are negative Vital Signs Vital Signs Date Time Temp Pulse Resp B/P (MAP) Pulse Ox O2 Delivery O2 Flow Rate FiO2 07/16/25 17:00 97.9 71 16 149/86 (107) 98 97.9 07/16/25 08:00 Room Air* 0 21 Physical Exam GENERAL EXAM: General: the patient is well developed and nourished. No acute distress. HEENT: Normocephalic, neck is supple, no carotid bruits. No mass. RESPIRATORY: Normal respiratory effort with symmetrical lung expansion. Lungs clear to auscultation. CARDIOVASCULAR: Regular rate and rhythm with no murmurs. S1, S2. ABDOMEN: Soft, nontender, normal bowel sound Mild tenderness to palpation in the neck NEUROLOGICAL: MENTAL STATUS: Awake and alert. Oriented to person, place, time and general circumstances. Able to give personal history. SPEECH, LANGUAGE, HIGHER CORTICAL FUNCTION: no aphasia or dysathria. CRANIAL NERVES: #2: Intact visual hull to confrontation. The optic discs were sharp. Retinal background was uniformly pink in appearance. There was no hemorrhages or exudates. #3,4,6: Pupils are equal, round and reactive. EOMs full and conjugate. Mild bilateral gaze evoked nystagmus. #5: Facial sensation intact in all three divisions bilaterally. Mandibular strength intact. #7: Facial muscles symmetrical and strength intact. Pinprick is normal in the tongue #8: Hearing grossly normal to voice. #9,10: Uvula and soft palate rise in the midline. Swallow and voice are normal. #11: Trapezius and sternomastoid strength intact bilaterally. #12: Tongue midline. No fasciculations or atrophy. SENSATION: Sensation to touch and pinprick is normal. MOTOR: Normal tone in the upper and lower extremity. Normal muscle bulk. No fasciculations. No abnormal movements or posturing. Muscle strength of the major groups in the upper extremities is 5/5. Muscle strength of the major groups in the lower extremities is 5/5. REFLEXES: Deep tendon reflexes are symmetrical. No pathological reflexes. CEREBELLAR/COORDINATION: Finger to nose and heel to amos are normal bilaterally. GAIT/STATION: deferred. Labs/Diagnostic Data Labs Test 07/16/25 05:47 07/15/25 11:38 07/15/25 10:53 07/15/25 10:19 Range/Units White Blood Count 6.3 4.4-10.8 10^3/uL Red Blood Count 4.17 4.0-5.20 10^6/uL Hemoglobin 12.0 L 12.2-16.2 g/dL Hematocrit 35.6 L 36.0-46.0 % Mean Corpuscular Volume 85.2 80.0-100.0 fL Mean Corpuscular Hemoglobin 28.6 28.0-32.0 pg Mean Corpuscular Hemoglobin Concent 33.6 32.0-36.0 g/dL Red Cell Distribution Width 14.6 H 11.8-14.3 % Platelet Count 270 140-450 10^3/uL Mean Platelet Volume 9.5 6.9-10.8 fL Neutrophils (%) (Auto) 53.6 37.0-80.0 % Lymphocytes (%) (Auto) 35.3 10.0-50.0 % Monocytes (%) (Auto) 8.6 0.0-12.0 % Eosinophils (%) (Auto) 1.8 0.0-7.0 % Basophils (%) (Auto) 0.7 0.0-2.0 % Neutrophils # (Auto) 3.4 1.6-8.6 10 ^3/uL Lymphocytes # (Auto) 2.2 0.4-5.4 10 ^3/uL Monocytes # (Auto) 0.5 0-1.3 10 ^3/uL Eosinophils # (Auto) 0.1 0-0.8 10 ^3/uL Basophils # (Auto) 0 0-0.2 10 ^3/uL Nucleated Red Blood Cells 0.2 % Sodium Level 141 136-145 mmol/L Potassium Level 3.5 3.5-5.1 mmol/L Chloride Level 105 98-107 mmol/L Carbon Dioxide Level 26 20-31 mmol/L Anion Gap 10 5-15 Blood Urea Nitrogen 18 9-23 mg/dL Creatinine 0.65 # 0.550-1.02 mg/dL Glomerular Filtration Rate Calc 95 >90 mL/min BUN/Creatinine Ratio 27.7 H 10.0-20.0 Serum Glucose 92 74-106 mg/dL Calcium Level 9.0 8.7-10.4 mg/dL Total Bilirubin 0.7 0.2-1.0 mg/dL Aspartate Amino Transferase (AST) 18 13-40 U/L Alanine Aminotransferase (ALT) 14 7-40 U/L Alkaline Phosphatase 72 46-116 U/L Total Protein 6.3 5.7-8.2 g/dL Albumin 3.9 3.2-4.8 g/dL Troponin I High Sensitivity 4 </=34 ng/L B-Type Natriuretic Peptide 33.19 0-100 pg/mL POC Glucose 122 H 70-106 mg/dl Assessment Pain in the left neck, shoulder, and upper extremity, paresthesia in both hands ? Rule out acute stroke ? Carpal tunnel syndrome ? Cervical spine radiculopathy History of dizziness/vertigo She might have Mnire disease Plan/Recommendation Monitoring Supportive treatment Telemetry MR brain scan No treatment/testing for history of dizziness/vertigo More recommendation per clinical course This medical document was created using an electronic medical record system with [employer] dictation system. Although this document has been carefully reviewed, there may still be some phonetic and typographical errors. These areas are purely typographical due to imperfections of the software programs, and do not reflect any compromise in the patient's medical care. Plan discussed with: Patient, Son, Other CAESAR TOBIAS MD Jul 16, 2025 18:54
[2025-07-16] MEDS ORDERED: LORazepam 2MG/ML-1ML VIAL IV PRN (19:30)
[2025-07-17 01:00] VITALS: BP 137/76; PULSE 65; RESP 17; TEMP 97.9; O2SAT 95
[2025-07-17 05:00] VITALS: BP 144/77; PULSE 64; RESP 16; TEMP 97.9; O2SAT 96
[2025-07-17 08:00] VITALS: PULSE 65
[2025-07-17 08:44] VITALS: BP 110/80; PULSE 56; RESP 16; TEMP 97.7; O2SAT 100
[2025-07-17] MEDS ORDERED: CLOP75TA28 PO (10:46)
--- NOTE | 2025-07-17 10:51 | DVHDS2 ---
Discharge Summary Date of Admission Jul 15, 2025 at 16:46 Date of Discharge: Jul 17, 2025 Admitting Diagnosis Cervical Radiculopathy Labs/Diagnostic Data: Laboratory Results Test 07/16/25 05:47 07/15/25 11:38 07/15/25 10:53 07/15/25 10:19 White Blood Count 6.3 10^3/uL (4.4-10.8) Red Blood Count 4.17 10^6/uL (4.0-5.20) Hemoglobin 12.0 g/dL (12.2-16.2) Hematocrit 35.6 % (36.0-46.0) Mean Corpuscular Volume 85.2 fL (80.0-100.0) Mean Corpuscular Hemoglobin 28.6 pg (28.0-32.0) Mean Corpuscular Hemoglobin Concent 33.6 g/dL (32.0-36.0) Red Cell Distribution Width 14.6 % (11.8-14.3) Platelet Count 270 10^3/uL (140-450) Mean Platelet Volume 9.5 fL (6.9-10.8) Neutrophils (%) (Auto) 53.6 % (37.0-80.0) Lymphocytes (%) (Auto) 35.3 % (10.0-50.0) Monocytes (%) (Auto) 8.6 % (0.0-12.0) Eosinophils (%) (Auto) 1.8 % (0.0-7.0) Basophils (%) (Auto) 0.7 % (0.0-2.0) Neutrophils # (Auto) 3.4 10 ^3/uL (1.6-8.6) Lymphocytes # (Auto) 2.2 10 ^3/uL (0.4-5.4) Monocytes # (Auto) 0.5 10 ^3/uL (0-1.3) Eosinophils # (Auto) 0.1 10 ^3/uL (0-0.8) Basophils # (Auto) 0 10 ^3/uL (0-0.2) Nucleated Red Blood Cells 0.2 % Sodium Level 141 mmol/L (136-145) Potassium Level 3.5 mmol/L (3.5-5.1) Chloride Level 105 mmol/L (98-107) Carbon Dioxide Level 26 mmol/L (20-31) Anion Gap 10 (5-15) Blood Urea Nitrogen 18 mg/dL (9-23) Creatinine 0.65 mg/dL (0.550-1.02) Glomerular Filtration Rate Calc 95 mL/min (>90) BUN/Creatinine Ratio 27.7 (10.0-20.0) Serum Glucose 92 mg/dL (74-106) Calcium Level 9.0 mg/dL (8.7-10.4) Total Bilirubin 0.7 mg/dL (0.2-1.0) Aspartate Amino Transferase (AST) 18 U/L (13-40) Alanine Aminotransferase (ALT) 14 U/L (7-40) Alkaline Phosphatase 72 U/L (46-116) Total Protein 6.3 g/dL (5.7-8.2) Albumin 3.9 g/dL (3.2-4.8) Troponin I High Sensitivity 4 ng/L (</=34) B-Type Natriuretic Peptide 33.19 pg/mL (0-100) POC Glucose 122 mg/dl (70-106) Other Laboratory Tests 07/16/25 05:47 Brief Hx & Hospital Course: 70-year-old female with primary medical history of hypertension, high lipids, rheumatoid arthritis, presented to the ED with chief complaint of numbness to bilateral arms and left posterior shoulder pain radiating to left arm for 3-5 days, patient also states left posterior tongue numbness x2 days ago- numbness to tongue patient states is intermittent and it comes and goes, patient is able to swallow without problem, patient denies any other associated symptoms, patient does not have slurred speech, blurred vision, facial symmetry is equal. CT of brain is negative for any acute abnormalities. Patient reports her symptoms have resolved. Patient reports her Arthritis flares up. Patient will need a C Spine MRI as outpatient. Patient will need to see Dr. Baig as outpatient. Condition at Discharge: Stable Final Diagnosis/Problems List Possible TIA- Plavix Cervical Radiculopathy Discharge Disposition: Home Discharge Instruct/Medications Diet: Regular Activity: Light activity Follow Up/Referral: Dr. Baig Medications: Plavix Scheduled Atorvastatin Calcium (Atorvastatin Calcium), 1 TAB PO DAILY, (Reported) Clopidogrel Bisulfate (Plavix), 75 MG PO QAM Gabapentin (Once-Daily) (Gabapentin), Unknown Dose PO DAILY, (Reported) Losartan Potassium (Losartan Potassium), 50 MG PO DAILY, (Reported) Methotrexate (Methotrexate), Unknown Dose PO QWEEKLY, (Reported) Miscellaneous Medications Leucovorin Calcium (Leucovorin Calcium), 5 MG PO, (Reported) Methotrexate (Xatmep), 2.5 MG SC, (Reported) Discontinued Medications Atorvastatin Calcium (Lipitor), Unknown Dose PO DAILY, (Reported) Leucovorin Calcium (Leucovorin Calcium), Unknown Dose PO DAILY, (Reported) Discharge Statement: "Patient was advised to return to the ER or call 911 if any headaches, dizziness, shortness of breath, chest pain, abdominal pain, bleeding, fevers, or worsening of medical condition. Patient was counseled about treatment plan, medications, possible side effects, patientverbalized understanding. All questions were answered to the best of my ability. This discharge took greater then 30 minutes in planning, reviewing documentation, counseling the patient, and discussing with other team members." ASSESSMENT ASSESSMENT Assessment Date of Service: Jul 17, 2025 Billing Provider: BILLY AHN MD Common Visit Codes: 41117-PCV/OBS DISCH DAY >30min BILLY AHN MD Jul 17, 2025 10:51
[2025-07-17 12:52] VITALS: BP 136/92; PULSE 71; RESP 16; TEMP 97.9; O2SAT 99
--- NOTE | 2025-07-17 13:47 | DVH ---
PROCEDURE: MRI BRAIN HEAD WO CONTRAST INDICATION: CVA EXAM DATE: 07/17/2025 08:10 AM COMPARISON: CT HEAD WITHOUT CONTRAST on DOS: 07/15/25, BRAIN HEAD WO CONTRAST on DOS: 09/29/22, HEAD WI THOUT CONTRAST on DOS: 08/03/22, HEAD WITHOUT CONTRAST on DOS: 04/22/22 TECHNIQUE: MRI of the brain without intravenous contrast. FINDINGS: Diffusion weighted images of the brain demonstrate no evidence of acute infarction. There is no evidence of acute intracranial hemorrhage, extra-axial collection, mass effect, midline s hift, herniation or hydrocephalus. The ventricles, sulci and cisterns appear age appropriate. There is nonspecific periventricular and subcortical T2/FLAIR hyperintense white matter changes. Diff erential includes: Demyelinating disease, chronic microangiopathic change, residua of migraine headac hes or other postinflammatory residua. There are no signal abnormalities on the susceptibility weighted sequences. The major vascular flow voids are present. The visualized paranasal sinuses and mastoid air cells are clear. The surrounding soft tissues and o sseous structures are unremarkable. IMPRESSION: No evidence of acute infarction, intracranial hemorrhage, mass effect or hydrocephalus. There is nonspecific periventricular and subcortical T2/FLAIR hyperintense white matter changes. Diff erential includes: Demyelinating disease, chronic microangiopathic change, residua of migraine headac hes or other postinflammatory residua.
[2025-07-17 14:17] VITALS: BP 110/80; TEMP 36.6
== END 2025-07-17 14:51 | disposition home or self-care (01) | DRG 74 ==
LOC: ER 10:08 → OVERFLOW 16:46 → TELE-CENTR 23:00
PROVIDERS: ADMIT Internal Medicine; ATTEND Internal Medicine
DX: M54.12 Radiculopathy, cervical region (principal); G45.9 Transient cerebral ischemic attack, unspecified; M06.9 Rheumatoid arthritis, unspecified; E87.6 Hypokalemia; I12.9 Hypertensive chronic kidney disease with stage 1 through stage 4 chronic kidney disease, or unspecified chronic kidney disease; E78.5 Hyperlipidemia, unspecified; Z88.6 Allergy status to analgesic agent; N18.9 Chronic kidney disease, unspecified; Z88.2 Allergy status to sulfonamides; Z79.899 Other long term (current) drug therapy
CPT/HCPCS: 36415; 70450; 70551; 71045; 80048; 80053; 82962; 83880; 84484; 85025; 93005; G0378

== ENCOUNTER 2025-09-12 09:23 | Outpatient (CLI) | payer OTHER ==
[~2025-09-12 09:23] MED LIST changes: -ATOR10TA PO; +ATOR40TA52 PO; +CLOP75TA28 PO; +METH2.5S SC
[2025-09-12 09:54] LABS: Hematocrit 37.2 % (36.0-46.0); Hemoglobin 12.5 g/dL (12.2-16.2); Mean Corpuscular Hemoglobin 28.8 pg (28.0-32.0); Mean Corpuscular Volume 85.6 fL (80.0-100.0); Nucleated Red Blood Cells % 0.0 %
[2025-09-12 10:57] LABS: Alanine Aminotransferase 16 U/L (7-40); Albumin 4.1 g/dL (3.2-4.8); Alkaline Phosphatase 89 U/L (46-116); Anion Gap 8 (5-15); BUN/Creatinine Ratio 17.3 (10.0-20.0); Bilirubin, Total 0.6 mg/dL (0.2-1.0); Blood Urea Nitrogen 14 mg/dL (9-23); Calcium 9.0 mg/dL (8.7-10.4); Carbon Dioxide 28 mmol/L (20-31); Chloride 105 mmol/L (98-107); Glucose 103 mg/dL (74-106); Potassium 4.3 mmol/L (3.5-5.1); Sodium 141 mmol/L (136-145); Total Protein 7.0 g/dL (5.7-8.2)
== END 2025-09-12 17:00 | disposition home or self-care (01) ==
LOC: LAB 09:23
PROVIDERS: ATTEND Internal Medicine Rheumatology
DX: M06.9 Rheumatoid arthritis, unspecified (principal); Z79.899 Other long term (current) drug therapy
CPT/HCPCS: 36415; 80053; 85025; 85652; 86141